=== PATIENT | male | born 1970 ===

== ENCOUNTER 2019-04-07 01:24 | Inpatient (IN) ==
[2019-04-07] MEDS ORDERED: GLUCAGON 1 MG VIAL IM PRN (03:29)
[2019-04-07] MEDS ORDERED: DEXTROSE 50% 25 GM/50 ML VIAL IV PRN (03:29)
[2019-04-07] MEDS: LABETALOL 20 MG/4 ML SYRINGE IV PRN ×2 (04:49→08:26)
[2019-04-07 05:38] LABS: Basophils # 0.1 10*3/uL (0.0-0.2); Basophils % 1.1 % (0.0-0.8); Eosinophils # 0.2 10*3/uL (0.0-0.87); Eosinophils % 2.4 % (0.00-10.9); Hematocrit 21.9 VOL% (42.0-52.0); Hemoglobin 6.9 GM/DL (14.0-18.0); Immature Granulocytes % 0.6 %; Immature Granulocytes Absolute 0.05 #; Lymphocytes % 23.2 % (21.2-54.2); Mean Corpuscular HGB Conc 31.5 GM/DL (32-36); Mean Corpuscular Volume 97.8 FL (87-102); Mean Platelet Volume 9.7 FL (9.6-12.0); Monocytes % 8.5 % (1.7-12.7); Neutrophils % 64.2 % (38.7-73.9); Platelet Count 227 T/CUMM (130-400); Red Blood Count 2.24 MC/CUMM (3.8-5.5); Red Cell Distribution Width 14.3 % (9.3-17.3); White Blood Count 8.4 T/CUMM (4-12)
[2019-04-07 06:07] LABS: Alanine Aminotransferase 61 U/L (16-61); Albumin 2.1 G/DL (3.4-5.0); Alkaline Phosphatase 63 U/L (45-117); Aspartate Amino Transferase 36 U/L (0-37); Bilirubin,Total < 0.39 MG/DL (0.2-1.0); Blood Urea Nitrogen 77 MG/DL (7-18); Calcium 7.1 MG/DL (8.5-10.1); Glucose 107 MG/DL (74-106); Osmolality,Calculated 308.8 MOS/KG (273-304)
[2019-04-07] MEDS: INSULIN REGULAR 100 UNIT/ML SUBCUT SCH ×4 (08:04→21:42)
[2019-04-07] MEDS: amLODIPine 10 MG TABLET PO SCH (09:20)
[2019-04-07] MEDS: PANTOPRAZOLE 40 MG TABLET PO SCH (09:20)
[2019-04-07] MEDS: ACETAMINOPHEN 325 MG TABLET PO PRN (11:41)
[2019-04-07] MEDS ORDERED: SODIUM CHLORIDE 0.9% 1,000 ML IV PRN (12:04)
[2019-04-07 18:18] LABS: Hematocrit 21.5 VOL% (42.0-52.0); Hemoglobin 6.8 GM/DL (14.0-18.0)
[2019-04-08] MEDS: INSULIN REGULAR 100 UNIT/ML SUBCUT SCH ×4 (07:43→20:09)
[2019-04-08 08:50] LABS: Basophils # 0.1 10*3/uL (0.0-0.2); Eosinophils # 0.2 10*3/uL (0.0-0.87); Eosinophils % 2.2 % (0.00-10.9); Hemoglobin 7.2 GM/DL (14.0-18.0); Immature Granulocytes % 0.4 %; Immature Granulocytes Absolute 0.04 #; Lymphocytes # 2.5 10*3/uL (1.4-4.0); Lymphocytes % 28.5 % (21.2-54.2); Mean Corpuscular HGB Conc 31.3 GM/DL (32-36); Mean Corpuscular Volume 97.9 FL (87-102); Mean Platelet Volume 9.2 FL (9.6-12.0); Monocytes % 9.2 % (1.7-12.7); Neutrophils % 58.7 % (38.7-73.9); Platelet Count 209 T/CUMM (130-400); Red Blood Count 2.35 MC/CUMM (3.8-5.5); Red Cell Distribution Width 14.9 % (9.3-17.3); White Blood Count 8.9 T/CUMM (4-12)
[2019-04-08 09:20] LABS: Calcium 6.8 MG/DL (8.5-10.1); Osmolality,Calculated 311.8 MOS/KG (273-304)
[2019-04-08] MEDS: PANTOPRAZOLE 40 MG TABLET PO SCH (10:18)
[2019-04-08] MEDS: amLODIPine 10 MG TABLET PO SCH (10:18)
[2019-04-08] MEDS ORDERED: LIDOCAINE 1%/EPI INJ 20 ML VIAL ONE (10:21)
[2019-04-08] MEDS ORDERED: BUPIVACAINE 0.25% /EPI 10 ML VIAL ONE (10:21)
[2019-04-08] MEDS ORDERED: HEPARIN 5,000 UNIT/1 ML VIAL ONE (10:21)
[2019-04-08 10:40] LABS: Hepatitis B Core IgM Quant 0.08 Index; Hepatitis B Surface Ag Quant < 0.10 Index; Hepatitis B Surface Ag Result Negative (Negative); Hepatitis C Virus Ab Quant 0.11 Index; Hepatitis C Virus Ab Result Negative (Negative)
[2019-04-08] MEDS ORDERED: ceFAZolin 1,000 MG VIAL ONE (11:11)
[2019-04-08] MEDS ORDERED: PROPOFOL 200 MG/20 ML VIAL IV ONE (11:42)
[2019-04-08] MEDS ORDERED: KETAMINE 500 MG/10 ML VIAL ONE (11:43)
[2019-04-08] MEDS ORDERED: MIDAZOLAM 2 MG/2 ML VIAL ONE (11:43)
[2019-04-08] MEDS ORDERED: fentaNYL 100 MCG/2 ML VIAL ONE (11:43)
[2019-04-08] MEDS ORDERED: SODIUM CHLORIDE 0.9% 250 ML IV ONE (11:44)
[2019-04-08] MEDS ORDERED: MAGNESIUM SULF RIDER 4 GM in PREMIX 1 EACH IV PRN (13:36)
[2019-04-08] MEDS ORDERED: MAGNESIUM SULF RIDER 2 GM in PREMIX 1 EACH IV PRN (13:36)
[2019-04-08] MEDS: ACETAMINOPHEN 325 MG TABLET PO PRN (23:45)
[2019-04-08] MEDS: LABETALOL 20 MG/4 ML SYRINGE IV PRN (23:46)
[2019-04-08] MEDS: ONDANSETRON 4 MG/2 ML VIAL IV PRN (23:46)
[2019-04-09] MEDS ORDERED: HEPARIN 10,000 UNIT/10 ML VIAL IV PRN (08:34)
[2019-04-09] MEDS: INSULIN REGULAR 100 UNIT/ML SUBCUT SCH ×4 (09:14→20:31)
[2019-04-09 09:34] LABS: Basophils # 0.1 10*3/uL (0.0-0.2); Basophils % 0.6 % (0.0-0.8); Eosinophils # 0.2 10*3/uL (0.0-0.87); Eosinophils % 1.9 % (0.00-10.9); Hematocrit 22.3 VOL% (42.0-52.0); Hemoglobin 7.3 GM/DL (14.0-18.0); Immature Granulocytes % 0.5 %; Immature Granulocytes Absolute 0.04 #; Lymphocytes # 1.8 10*3/uL (1.4-4.0); Lymphocytes % 21.8 % (21.2-54.2); Mean Corpuscular HGB Conc 32.7 GM/DL (32-36); Mean Corpuscular Volume 94.9 FL (87-102); Mean Platelet Volume 9.2 FL (9.6-12.0); Monocytes % 8.5 % (1.7-12.7); Neutrophils % 66.7 % (38.7-73.9); Platelet Count 196 T/CUMM (130-400); Red Blood Count 2.35 MC/CUMM (3.8-5.5); Red Cell Distribution Width 14.2 % (9.3-17.3); White Blood Count 8.2 T/CUMM (4-12)
[2019-04-09] MEDS: LABETALOL 20 MG/4 ML SYRINGE IV PRN ×3 (10:19→20:55)
[2019-04-09] MEDS: amLODIPine 10 MG TABLET PO SCH (10:19)
[2019-04-09 10:22] LABS: Calcium 7.2 MG/DL (8.5-10.1); Osmolality,Calculated 302.4 MOS/KG (273-304)
[2019-04-09] MEDS: PANTOPRAZOLE 40 MG TABLET PO SCH (13:43)
[2019-04-09] MEDS: ONDANSETRON 4 MG/2 ML VIAL IV PRN (20:55)
[2019-04-10 05:39] LABS: Basophils # 0.1 10*3/uL (0.0-0.2); Basophils % 0.7 % (0.0-0.8); Eosinophils # 0.2 10*3/uL (0.0-0.87); Hemoglobin 6.5 GM/DL (14.0-18.0); Immature Granulocytes % 0.3 %; Immature Granulocytes Absolute 0.03 #; Lymphocytes # 2.2 10*3/uL (1.4-4.0); Lymphocytes % 25.1 % (21.2-54.2); Mean Corpuscular HGB Conc 32.5 GM/DL (32-36); Mean Corpuscular Volume 94.8 FL (87-102); Mean Platelet Volume 9.6 FL (9.6-12.0); Monocytes % 10.8 % (1.7-12.7); Neutrophils % 61.1 % (38.7-73.9); Platelet Count 176 T/CUMM (130-400); Red Blood Count 2.11 MC/CUMM (3.8-5.5); White Blood Count 8.8 T/CUMM (4-12)
[2019-04-10 06:09] LABS: Calcium 6.7 MG/DL (8.5-10.1); Osmolality,Calculated 294.1 MOS/KG (273-304)
[2019-04-10] MEDS: INSULIN REGULAR 100 UNIT/ML SUBCUT SCH ×4 (08:04→20:00)
[2019-04-10] MEDS: amLODIPine 10 MG TABLET PO SCH (08:48)
[2019-04-10] MEDS: PANTOPRAZOLE 40 MG TABLET PO SCH (08:49)
[2019-04-10] MEDS: ACETAMINOPHEN 325 MG TABLET PO PRN (08:49)
[2019-04-10] MEDS: ONDANSETRON 4 MG/2 ML VIAL IV PRN (14:58)
[2019-04-10] MEDS ORDERED: SODIUM CHLORIDE 0.9% 1,000 ML IV PRN (16:53)
[2019-04-11 05:00] LABS: Basophils # 0.1 10*3/uL (0.0-0.2); Basophils % 0.7 % (0.0-0.8); Eosinophils # 0.2 10*3/uL (0.0-0.87); Eosinophils % 2.5 % (0.00-10.9); Hematocrit 20.4 VOL% (42.0-52.0); Hemoglobin 6.6 GM/DL (14.0-18.0); Immature Granulocytes % 0.3 %; Immature Granulocytes Absolute 0.03 #; Lymphocytes # 2.2 10*3/uL (1.4-4.0); Lymphocytes % 25.3 % (21.2-54.2); Mean Corpuscular HGB Conc 32.4 GM/DL (32-36); Mean Corpuscular Volume 95.8 FL (87-102); Mean Platelet Volume 9.1 FL (9.6-12.0); Monocytes % 10.1 % (1.7-12.7); Neutrophils % 61.1 % (38.7-73.9); Platelet Count 176 T/CUMM (130-400); Red Blood Count 2.13 MC/CUMM (3.8-5.5); Red Cell Distribution Width 13.8 % (9.3-17.3); White Blood Count 8.7 T/CUMM (4-12)
[2019-04-11 05:19] LABS: Calcium 6.6 MG/DL (8.5-10.1); Osmolality,Calculated 293.3 MOS/KG (273-304)
[2019-04-11] MEDS: INSULIN REGULAR 100 UNIT/ML SUBCUT SCH ×4 (07:42→19:59)
[2019-04-11] MEDS: amLODIPine 10 MG TABLET PO SCH ×2 (08:09→11:58)
[2019-04-11] MEDS: PANTOPRAZOLE 40 MG TABLET PO SCH ×2 (08:10→11:58)
[2019-04-11] MEDS ORDERED: HEPARIN 5,000 UNIT/1 ML VIAL ONE (11:51)
[2019-04-11] MEDS ORDERED: BUPIVACAINE 0.25% /EPI 10 ML VIAL ONE (11:51)
[2019-04-11] MEDS ORDERED: THROMBIN TOPICAL (RECOMBINANT) 5,000 UNIT VIAL TOP ONE (11:52)
[2019-04-11] MEDS ORDERED: LIDOCAINE 1%/EPI INJ 20 ML VIAL ONE (11:52)
[2019-04-11] MEDS ORDERED: ceFAZolin 1,000 MG VIAL ONE (13:09)
[2019-04-11] MEDS: GABAPENTIN 100 MG CAPSULE PO SCH ×2 (14:00→20:22)
[2019-04-11] MEDS ORDERED: PROPOFOL 200 MG/20 ML VIAL IV ONE (14:30)
[2019-04-11] MEDS ORDERED: METOPROLOL TARTRATE 5 MG/5 ML VIAL IV ONE (14:31)
[2019-04-11] MEDS ORDERED: MIDAZOLAM 2 MG/2 ML VIAL ONE (14:31)
[2019-04-11] MEDS ORDERED: fentaNYL 100 MCG/2 ML VIAL ONE (14:31)
[2019-04-11] MEDS: CARVEDILOL 25 MG TABLET PO SCH (20:22)
[2019-04-11] MEDS: ATORVASTATIN 40 MG TABLET PO SCH (20:22)
[2019-04-11] MEDS: ACETAMINOPHEN 325 MG TABLET PO PRN (20:23)
[2019-04-12 07:12] LABS: Basophils # 0.1 10*3/uL (0.0-0.2); Basophils % 1.1 % (0.0-0.8); Eosinophils # 0.2 10*3/uL (0.0-0.87); Eosinophils % 2.8 % (0.00-10.9); Hematocrit 27.5 VOL% (42.0-52.0); Hemoglobin 8.9 GM/DL (14.0-18.0); Immature Granulocytes % 0.4 %; Immature Granulocytes Absolute 0.03 #; Lymphocytes # 1.8 10*3/uL (1.4-4.0); Lymphocytes % 24.2 % (21.2-54.2); Mean Corpuscular HGB Conc 32.4 GM/DL (32-36); Mean Corpuscular Volume 93.9 FL (87-102); Mean Platelet Volume 8.8 FL (9.6-12.0); Monocytes % 8.8 % (1.7-12.7); Neutrophils % 62.7 % (38.7-73.9); Platelet Count 165 T/CUMM (130-400); Red Blood Count 2.93 MC/CUMM (3.8-5.5); Red Cell Distribution Width 14.2 % (9.3-17.3); White Blood Count 7.6 T/CUMM (4-12)
[2019-04-12] MEDS ORDERED: HYDROCORTISONE 1% CREAM 28 GM TUBE TOP PRN (08:50)
[2019-04-12] MEDS ORDERED: SKIN HEALING OINT (AQUAPHOR) 50 GM TUBE TOP PRN (08:50)
[2019-04-12] MEDS ORDERED: NIFEDIPINE 30 MG PO SCH (09:00)
[2019-04-12] MEDS: PANTOPRAZOLE 40 MG TABLET PO SCH (09:06)
[2019-04-12] MEDS: GABAPENTIN 100 MG CAPSULE PO SCH ×3 (09:06→21:12)
[2019-04-12] MEDS: CETIRIZINE 10 MG TABLET PO SCH (09:06)
[2019-04-12] MEDS: CARVEDILOL 25 MG TABLET PO SCH ×2 (09:06→21:12)
[2019-04-12] MEDS: INSULIN REGULAR 100 UNIT/ML SUBCUT SCH ×4 (10:12→21:12)
[2019-04-12] MEDS: LOSARTAN 50 MG TABLET PO SCH (10:12)
[2019-04-12] MEDS ORDERED: EPOETIN ALFA 2,000 UNIT/1 ML VIAL IV PRN (15:54)
[2019-04-12] MEDS: ATORVASTATIN 40 MG TABLET PO SCH (21:12)
[2019-04-13 05:45] LABS: % Iron Saturation 23.2 % (18-50)
[2019-04-13] MEDS: INSULIN REGULAR 100 UNIT/ML SUBCUT SCH ×3 (08:46→16:12)
[2019-04-13] MEDS: GABAPENTIN 100 MG CAPSULE PO SCH ×2 (12:58→16:12)
[2019-04-13] MEDS: CARVEDILOL 25 MG TABLET PO SCH (12:58)
[2019-04-13] MEDS: CETIRIZINE 10 MG TABLET PO SCH (12:58)
[2019-04-13] MEDS: PANTOPRAZOLE 40 MG TABLET PO SCH (12:58)
[2019-04-13] MEDS: LOSARTAN 50 MG TABLET PO SCH (12:59)
[2019-04-13 16:27] VITALS: BP 129/73
== END 2019-04-13 18:15 | disposition home or self-care (01) | DRG 674 ==
LOC: N.5E 01:34 → SUATTDRO 03:04
PROVIDERS: ADMIT Internal Medicine; ATTEND Internal Medicine

== ENCOUNTER 2020-11-19 10:39 | Observation (INO) ==
[2020-11-19 12:03] LABS: Basophils # 0.1 10*3/uL (0.0-0.2); Basophils % 1.2 % (0.0-0.8); Eosinophils # 0.1 10*3/uL (0.0-0.87); Eosinophils % 1.4 % (0.00-10.9); Hematocrit 32.6 VOL% (42.0-52.0); Hemoglobin 10.8 GM/DL (14.0-18.0); Immature Granulocytes % 0.6 %; Immature Granulocytes Absolute 0.06 #; Lymphocytes # 2.5 10*3/uL (1.4-4.0); Lymphocytes % 26.6 % (21.2-54.2); Mean Corpuscular HGB Conc 33.1 GM/DL (32-36); Mean Platelet Volume 8.8 FL (9.6-12.0); Monocytes % 7.3 % (1.7-12.7); Neutrophils % 62.9 % (38.7-73.9); Platelet Count 292 T/CUMM (130-400); Red Blood Count 3.43 MC/CUMM (3.8-5.5); Red Cell Distribution Width 13.2 % (9.3-17.3); White Blood Count 9.3 T/CUMM (4-12)
[2020-11-19] MEDS ORDERED: propofoL 200 MG/20 ML VIAL IV ONE (12:07)
[2020-11-19] MEDS ORDERED: LIDOCAINE 2% 5 ML VIAL ONE (12:07)
[2020-11-19] MEDS ORDERED: MIDAZOLAM 2 MG/2 ML VIAL ONE (12:07)
[2020-11-19] MEDS ORDERED: DEXMEDETOMIDINE 200 MCG/2 ML VIAL ONE (12:07)
[2020-11-19] MEDS ORDERED: BUPIVACAINE MPF 0.25% 30 ML VIAL ONE (12:08)
[2020-11-19] MEDS ORDERED: TISSUE ADHESIVE 1 EACH APPLICATOR TOP ONE (12:08)
[2020-11-19] MEDS ORDERED: LIDOCAINE 1%/EPI INJ 20 ML VIAL ONE (12:08)
[2020-11-19] MEDS ORDERED: HEPARIN 5,000 UNIT/1 ML VIAL ONE (12:08)
[2020-11-19 12:26] LABS: Albumin 3.8 G/DL (3.4-5.0); Bilirubin,Total 0.4 MG/DL (0.2-1.0); Calcium 7.2 MG/DL (8.5-10.1); Osmolality,Calculated 298.5 MOS/KG (273-304); Total Protein 8.3 G/DL (6.4-8.3)
[2020-11-19 12:30] LABS: Potassium 6.9 MMOL/L (3.5-5.1)
[2020-11-19] MEDS ORDERED: ONDANSETRON 4 MG/2 ML VIAL IV PRN (13:15)
[2020-11-19] MEDS ORDERED: ACETAMINOPHEN 325 MG TABLET PO PRN (13:15)
[2020-11-19] MEDS ORDERED: DEXTROSE 50% 25 GM/50 ML VIAL IV PRN ×2 (13:15)
[2020-11-19] MEDS ORDERED: GLUCAGON 1 MG VIAL IM PRN ×2 (13:15)
[2020-11-19] MEDS ORDERED: GLYCOPYRROLATE 0.4 MG/2 ML VIAL IV STA (13:45)
[2020-11-19] MEDS ORDERED: GLYCOPYRROLATE 0.4 MG/2 ML VIAL ONE (13:47)
[2020-11-19] MEDS ORDERED: INSULIN REGULAR 100 UNIT/ML IV STA (13:50)
[2020-11-19] MEDS ORDERED: DEXTROSE 50% 25 GM/50 ML VIAL IV STA (13:50)
[2020-11-19] MEDS ORDERED: ATROPINE 1 MG/10 ML SYRINGE IV STA (13:50)
[2020-11-19] MEDS ORDERED: EPINEPHrine 1 MG/10 ML SYRINGE IV STA (13:53)
[2020-11-19] MEDS ORDERED: INSULIN REGULAR 100 UNIT/ML ONE (13:53)
[2020-11-19] MEDS ORDERED: ALBUTEROL 2.5 MG/3 ML NEB RESP TX ONE (13:54)
[2020-11-19] MEDS ORDERED: ALBUTEROL 2.5 MG/3 ML NEB RESP TX STA (13:55)
[2020-11-19 14:11] LABS: Basophils # 0.1 10*3/uL (0.0-0.2); Basophils % 0.7 % (0.0-0.8); Eosinophils # 0.1 10*3/uL (0.0-0.87); Eosinophils % 0.7 % (0.00-10.9); Immature Granulocytes % 0.7 %; Immature Granulocytes Absolute 0.08 #; Lymphocytes # 4.4 10*3/uL (1.4-4.0); Mean Corpuscular HGB Conc 33.3 GM/DL (32-36); Mean Corpuscular Volume 95.9 FL (87-102); Mean Platelet Volume 8.8 FL (9.6-12.0); Monocytes % 1.7 % (1.7-12.7); Neutrophils % 60.2 % (38.7-73.9); Platelet Count 289 T/CUMM (130-400); Red Blood Count 3.44 MC/CUMM (3.8-5.5); Red Cell Distribution Width 13.2 % (9.3-17.3); White Blood Count 12.2 T/CUMM (4-12)
[2020-11-19 14:30] LABS: Calcium 7.4 MG/DL (8.5-10.1); Osmolality,Calculated 308.7 MOS/KG (273-304)
[2020-11-19 14:34] LABS: Potassium 7.1 MMOL/L (3.5-5.1)
[2020-11-19] MEDS ORDERED: CALCIUM GLUCONATE 1,000 MG/10 ML VIAL IV ONE (14:50)
[2020-11-19] MEDS ORDERED: CALCIUM GLUCONATE 2,000 MG in SODIUM CHLORIDE 0.9% 100 ML IV ONE (15:00)
[2020-11-19] MEDS ORDERED: INFLUENZA VIRUS VACCINE 0.5 ML SYRINGE IM ONE (16:14)
[2020-11-19] MEDS: INSULIN LISPRO 100 UNIT/ML SUBCUT SCH ×2 (17:44→20:14)
[2020-11-19 21:12] LABS: Calcium 7.7 MG/DL (8.5-10.1); Osmolality,Calculated 285.7 MOS/KG (273-304); Potassium 5.4 MMOL/L (3.5-5.1)
[2020-11-20] MEDS ORDERED: CETIRIZINE 10 MG TABLET PO PRN (01:17)
[2020-11-20 04:49] LABS: Basophils # 0.1 10*3/uL (0.0-0.2); Basophils % 0.9 % (0.0-0.8); Eosinophils # 0.1 10*3/uL (0.0-0.87); Hematocrit 32.4 VOL% (42.0-52.0); Hemoglobin 11.1 GM/DL (14.0-18.0); Immature Granulocytes % 0.3 %; Immature Granulocytes Absolute 0.03 #; Lymphocytes # 2.5 10*3/uL (1.4-4.0); Mean Corpuscular HGB Conc 34.3 GM/DL (32-36); Mean Corpuscular Volume 93.9 FL (87-102); Mean Platelet Volume 9.3 FL (9.6-12.0); Neutrophils % 64.8 % (38.7-73.9); Platelet Count 291 T/CUMM (130-400); Red Blood Count 3.45 MC/CUMM (3.8-5.5); Red Cell Distribution Width 13.3 % (9.3-17.3); White Blood Count 9.6 T/CUMM (4-12)
[2020-11-20 04:52] LABS: Calcium 7.2 MG/DL (8.5-10.1); Osmolality,Calculated 291.2 MOS/KG (273-304)
[2020-11-20] MEDS: INSULIN LISPRO 100 UNIT/ML SUBCUT SCH ×4 (07:30→23:38)
[2020-11-20] MEDS ORDERED: CETIRIZINE 10 MG TABLET PO SCH (09:00)
[2020-11-20] MEDS ORDERED: SKIN HEALING OINT (AQUAPHOR) 50 GM TUBE TOP PRN (14:00)
[2020-11-20] MEDS ORDERED: HYDROCORTISONE 1% CREAM 28 GM TUBE TOP PRN (14:00)
[2020-11-20] MEDS: GABAPENTIN 100 MG CAPSULE PO SCH ×2 (16:39→23:38)
[2020-11-20] MEDS: ATORVASTATIN 40 MG TABLET PO SCH (23:37)
[2020-11-21 06:08] LABS: Calcium 6.9 MG/DL (8.5-10.1); Osmolality,Calculated 298.2 MOS/KG (273-304); Potassium 5.9 MMOL/L (3.5-5.1)
[2020-11-21] MEDS: INSULIN LISPRO 100 UNIT/ML SUBCUT SCH ×4 (08:31→21:17)
[2020-11-21] MEDS: GABAPENTIN 100 MG CAPSULE PO SCH ×3 (08:54→20:34)
[2020-11-21] MEDS ORDERED: HEPARIN 10,000 UNIT/10 ML VIAL IV PRN (10:50)
[2020-11-21] MEDS ORDERED: SODIUM POLYSTYRENE SULFATE 15 GM/60 ML BOTTLE PO ONE (12:30)
[2020-11-21] MEDS: ATORVASTATIN 40 MG TABLET PO SCH (20:34)
[2020-11-22 08:19] VITALS: BP 115/77
[2020-11-22] MEDS: GABAPENTIN 100 MG CAPSULE PO SCH (08:20)
[2020-11-22] MEDS ORDERED: SODIUM POLYSTYRENE SULFATE 15 GM/60 ML BOTTLE PO ONE (09:00)
== END 2020-11-22 12:35 | disposition home or self-care (01) ==
LOC: N.ED 10:39 → N.EDINP 10:39 → SUATTDRO 13:15 → N.CC 15:07 → N.5E 11-20 14:01
PROVIDERS: ADMIT Internal Medicine; ATTEND Internal Medicine

== ENCOUNTER 2021-08-28 13:35 | Inpatient (IN) ==
[2021-08-28] MEDS ORDERED: ONDANSETRON 4 MG/2 ML VIAL IV STA (14:03)
[2021-08-28] MEDS ORDERED: MORPHINE 2 MG/1 ML SYRINGE IV STA (14:03)
[2021-08-28] MEDS ORDERED: ALUM/MAG/SIMETH/LIDO VISC 1:1 30 ML BOTTLE PO STA (14:03)
[2021-08-28] MEDS ORDERED: NITROGLYCERIN 2% OINT 1 INCH/GM PACK TOP STA (14:03)
[2021-08-28] MEDS ORDERED: ASPIRIN 325 MG TABLET PO STA (14:03)
[2021-08-28] MEDS ORDERED: METOPROLOL TARTRATE 5 MG/5 ML VIAL IV STA (14:13)
[2021-08-28 14:18] LABS: Basophils % 0.4 % (0.0-0.8); Eosinophils % 0.1 % (0.00-10.9); Hematocrit 30.7 VOL% (42.0-52.0); Hemoglobin 9.9 GM/DL (14.0-18.0); Immature Granulocytes % 0.7 %; Immature Granulocytes Absolute 0.07 #; Lymphocytes # 1.2 10*3/uL (1.4-4.0); Lymphocytes % 11.6 % (21.2-54.2); Mean Corpuscular HGB Conc 32.2 GM/DL (32-36); Mean Corpuscular Volume 96.5 FL (87-102); Monocytes % 8.6 % (1.7-12.7); Neutrophils % 78.6 % (38.7-73.9); Platelet Count 156 T/CUMM (130-400); Red Blood Count 3.18 MC/CUMM (3.8-5.5); Red Cell Distribution Width 12.4 % (9.3-17.3); White Blood Count 10.6 T/CUMM (4-12)
[2021-08-28 14:31] LABS: PT Patient Result 11.6 SECS (10.5-12.0); Partial Thromboplastin Time 32.5 SECS (23.8-32.1)
[2021-08-28] MEDS ORDERED: FUROSEMIDE 40 MG/4 ML VIAL IV STA (14:47)
[2021-08-28] MEDS ORDERED: hydrALAZINE 20 MG/1 ML VIAL IV STA (14:51)
[2021-08-28 15:01] LABS: Albumin 3.8 G/DL (3.4-5.0); Bilirubin,Total 0.6 MG/DL (0.20-1.00); Osmolality,Calculated 317.4 MOS/KG (273-304); Potassium 5.4 MMOL/L (3.5-5.1); Total Protein 7.8 G/DL (6.4-8.2)
[2021-08-28] MEDS ORDERED: MAGNESIUM SULF RIDER 2 GM/50 ML PREMIX IV PRN (16:26)
[2021-08-28] MEDS ORDERED: POTASSIUM CHLORIDE 20 MEQ TABLET PO PRN (16:26)
[2021-08-28] MEDS ORDERED: hydrALAZINE 20 MG/1 ML VIAL IV PRN (16:26)
[2021-08-28] MEDS ORDERED: MORPHINE 2 MG/1 ML SYRINGE IV PRN (16:26)
[2021-08-28] MEDS ORDERED: MAGNESIUM SULF RIDER 4 GM/100 ML PREMIX IV PRN (16:26)
[2021-08-28] MEDS ORDERED: NITROGLYCERIN SL 0.4 MG TABLET SL PRN (16:26)
[2021-08-28] MEDS ORDERED: GLUCAGON 1 MG VIAL IM PRN (16:26)
[2021-08-28] MEDS ORDERED: ALUMINUM/MAGNES/SIMETH MAX STR 30 ML UDCUP PO PRN (16:26)
[2021-08-28] MEDS ORDERED: DEXTROSE 50% 25 GM/50 ML SYRINGE IV PRN (16:26)
[2021-08-28] MEDS ORDERED: ALBUTEROL 2.5 MG/3 ML NEB RESP TX PRN (16:26)
[2021-08-28] MEDS ORDERED: ONDANSETRON 4 MG/2 ML VIAL IV PRN (16:26)
[2021-08-28] MEDS ORDERED: SODIUM POLYSTYRENE SULFATE 15 GM/60 ML BOTTLE PO STA (16:52)
[2021-08-28] MEDS: INSULIN LISPRO 100 UNIT/ML SUBCUT SCH ×2 (17:55→20:43)
[2021-08-28] MEDS: carvediloL 25 MG TABLET PO SCH (20:19)
[2021-08-28] MEDS: ATORVASTATIN 40 MG TABLET PO SCH (20:19)
[2021-08-28] MEDS ORDERED: ENOXAPARIN 30 MG/0.3 ML SYRINGE SUBCUT SCH (21:00)
[2021-08-29 06:17] LABS: Basophils % 0.4 % (0.0-0.8); Eosinophils # 0.1 10*3/uL (0.0-0.87); Eosinophils % 1.1 % (0.00-10.9); Hematocrit 26.9 VOL% (42.0-52.0); Hemoglobin 8.6 GM/DL (14.0-18.0); Immature Granulocytes % 0.5 %; Immature Granulocytes Absolute 0.04 #; Lymphocytes # 1.5 10*3/uL (1.4-4.0); Lymphocytes % 17.9 % (21.2-54.2); Mean Corpuscular Volume 96.4 FL (87-102); Mean Platelet Volume 10.2 FL (9.6-12.0); Monocytes % 7.9 % (1.7-12.7); Neutrophils % 72.2 % (38.7-73.9); Platelet Count 127 T/CUMM (130-400); Red Blood Count 2.79 MC/CUMM (3.8-5.5); Red Cell Distribution Width 12.5 % (9.3-17.3); White Blood Count 8.4 T/CUMM (4-12)
[2021-08-29 06:29] LABS: PT Patient Result 11.6 SECS (10.5-12.0); Partial Thromboplastin Time 33.8 SECS (23.8-32.1)
[2021-08-29 06:50] LABS: Albumin 3.4 G/DL (3.4-5.0); Bilirubin,Total 1.7 MG/DL (0.20-1.00); Osmolality,Calculated 306.7 MOS/KG (273-304); Risk Ratio 2.55; Thyroid Stimulating Hormone 1.28 uIU/ml (0.358-3.74); VLDL Cholesterol 18.2 MG/DL
[2021-08-29 06:59] LABS: Potassium 7.1 MMOL/L (3.5-5.1)
[2021-08-29 07:01] LABS: Calcium 8.4 MG/DL (8.5-10.1)
[2021-08-29] MEDS: INSULIN LISPRO 100 UNIT/ML SUBCUT SCH ×4 (07:37→21:06)
[2021-08-29] MEDS ORDERED: SODIUM POLYSTYRENE SULFATE 15 GM/60 ML BOTTLE PO ONE (08:18)
[2021-08-29] MEDS ORDERED: CALCIUM GLUCONATE 1,000 MG in SODIUM CHLORIDE 0.9% 100 ML IV ONE (08:18)
[2021-08-29] MEDS ORDERED: KETOROLAC 30 MG/1 ML VIAL IV ONE (08:20)
[2021-08-29] MEDS ORDERED: INSULIN REGULAR 100 UNIT/ML SUBCUT ONE (08:20)
[2021-08-29] MEDS ORDERED: DEXTROSE 50% 25 GM/50 ML SYRINGE IV ONE (08:30)
[2021-08-29] MEDS ORDERED: LOSARTAN 50 MG TABLET PO SCH ×2 (09:00)
[2021-08-29] MEDS: carvediloL 25 MG TABLET PO SCH ×2 (09:42→21:04)
[2021-08-29] MEDS: MULTIVITAMIN (CENTRUM) TABLET PO SCH (09:42)
[2021-08-29] MEDS: GABAPENTIN 100 MG CAPSULE PO SCH ×3 (09:43→21:05)
[2021-08-29] MEDS: PANTOPRAZOLE 40 MG TABLET PO SCH (09:43)
[2021-08-29] MEDS: SODIUM BICARB INJ 50 MEQ in STERILE WATER INJ 1,000 ML IV SCH (09:50)
[2021-08-29] MEDS: SODIUM BICARB INJ 50 MEQ in SODIUM CHLORIDE 0.45% 1,000 ML IV SCH (16:00)
[2021-08-29] MEDS: hydrALAZINE 25 MG TABLET PO SCH ×2 (16:57→21:04)
[2021-08-29] MEDS: ATORVASTATIN 40 MG TABLET PO SCH (21:04)
[2021-08-30] MEDS: SODIUM BICARB INJ 50 MEQ in SODIUM CHLORIDE 0.45% 1,000 ML IV SCH ×3 (01:12→21:04)
[2021-08-30 04:24] LABS: Basophils # 0.1 10*3/uL (0.0-0.2); Basophils % 0.9 % (0.0-0.8); Eosinophils # 0.2 10*3/uL (0.0-0.87); Eosinophils % 2.8 % (0.00-10.9); Hematocrit 25.8 VOL% (42.0-52.0); Hemoglobin 8.7 GM/DL (14.0-18.0); Immature Granulocytes % 0.3 %; Immature Granulocytes Absolute 0.02 #; Lymphocytes # 1.6 10*3/uL (1.4-4.0); Lymphocytes % 23.3 % (21.2-54.2); Mean Corpuscular HGB Conc 33.7 GM/DL (32-36); Mean Corpuscular Volume 95.2 FL (87-102); Mean Platelet Volume 10.1 FL (9.6-12.0); Monocytes % 8.8 % (1.7-12.7); Neutrophils % 63.9 % (38.7-73.9); Platelet Count 120 T/CUMM (130-400); Red Blood Count 2.71 MC/CUMM (3.8-5.5); Red Cell Distribution Width 12.4 % (9.3-17.3); White Blood Count 6.8 T/CUMM (4-12)
[2021-08-30 04:50] LABS: Calcium 7.7 MG/DL (8.5-10.1); Osmolality,Calculated 305.2 MOS/KG (273-304); Potassium 4.9 MMOL/L (3.5-5.1)
[2021-08-30] MEDS: SODIUM BICARB INJ 50 MEQ in STERILE WATER INJ 1,000 ML IV SCH ×2 (07:32→16:12)
[2021-08-30] MEDS: INSULIN LISPRO 100 UNIT/ML SUBCUT SCH ×4 (07:33→21:05)
[2021-08-30] MEDS: GABAPENTIN 100 MG CAPSULE PO SCH ×3 (08:18→21:05)
[2021-08-30] MEDS: MULTIVITAMIN (CENTRUM) TABLET PO SCH (08:18)
[2021-08-30] MEDS: hydrALAZINE 25 MG TABLET PO SCH ×3 (08:19→21:05)
[2021-08-30] MEDS: PANTOPRAZOLE 40 MG TABLET PO SCH (08:19)
[2021-08-30] MEDS: carvediloL 25 MG TABLET PO SCH ×2 (08:19→21:05)
[2021-08-30] MEDS: HEPARIN 5,000 UNIT/1 ML VIAL SUBCUT SCH ×2 (12:48→23:18)
[2021-08-30] MEDS: MELATONIN 3 MG TABLET PO PRN (21:04)
[2021-08-30] MEDS: ATORVASTATIN 40 MG TABLET PO SCH (21:05)
[2021-08-31 05:38] LABS: Basophils % 0.6 % (0.0-0.8); Eosinophils # 0.2 10*3/uL (0.0-0.87); Hematocrit 22.1 VOL% (42.0-52.0); Hemoglobin 7.3 GM/DL (14.0-18.0); Immature Granulocytes % 0.6 %; Immature Granulocytes Absolute 0.04 #; Lymphocytes # 1.5 10*3/uL (1.4-4.0); Lymphocytes % 21.8 % (21.2-54.2); Mean Corpuscular Volume 95.3 FL (87-102); Mean Platelet Volume 10.3 FL (9.6-12.0); Monocytes % 8.3 % (1.7-12.7); Neutrophils % 65.7 % (38.7-73.9); Platelet Count 124 T/CUMM (130-400); Red Blood Count 2.32 MC/CUMM (3.8-5.5); Red Cell Distribution Width 12.5 % (9.3-17.3); White Blood Count 6.8 T/CUMM (4-12)
[2021-08-31 05:39] LABS: Basophils # 0.1 10*3/uL (0.0-0.2); Basophils % 0.7 % (0.0-0.8); Eosinophils # 0.2 10*3/uL (0.0-0.87); Eosinophils % 2.7 % (0.00-10.9); Hematocrit 22.2 VOL% (42.0-52.0); Hemoglobin 7.2 GM/DL (14.0-18.0); Lymphocytes # 1.5 10*3/uL (1.4-4.0); Lymphocytes % 21.6 % (21.2-54.2); Mean Corpuscular HGB Conc 32.4 GM/DL (32-36); Mean Corpuscular Volume 96.1 FL (87-102); Mean Platelet Volume 10.4 FL (9.6-12.0); Neutrophils % 65.3 % (38.7-73.9); Platelet Count 123 T/CUMM (130-400); Red Blood Count 2.31 MC/CUMM (3.8-5.5); Red Cell Distribution Width 12.4 % (9.3-17.3); White Blood Count 6.9 T/CUMM (4-12)
[2021-08-31 06:05] LABS: Albumin 2.6 G/DL (3.4-5.0); Bilirubin,Total 1.4 MG/DL (0.20-1.00); Calcium 6.2 MG/DL (8.5-10.1); Calcium 6.3 MG/DL (8.5-10.1); Osmolality,Calculated 299.1 MOS/KG (273-304); Osmolality,Calculated 302.8 MOS/KG (273-304); Potassium 3.6 MMOL/L (3.5-5.1); Total Protein 5.8 G/DL (6.4-8.2)
[2021-08-31] MEDS: SODIUM BICARB INJ 50 MEQ in STERILE WATER INJ 1,000 ML IV SCH ×2 (07:10→12:52)
[2021-08-31] MEDS: SODIUM BICARB INJ 50 MEQ in SODIUM CHLORIDE 0.45% 1,000 ML IV SCH ×2 (07:11→17:31)
[2021-08-31] MEDS: INSULIN LISPRO 100 UNIT/ML SUBCUT SCH ×4 (07:54→21:22)
[2021-08-31] MEDS: hydrALAZINE 25 MG TABLET PO SCH ×3 (08:15→21:20)
[2021-08-31] MEDS: PANTOPRAZOLE 40 MG TABLET PO SCH (08:15)
[2021-08-31] MEDS: GABAPENTIN 100 MG CAPSULE PO SCH ×3 (08:15→21:21)
[2021-08-31] MEDS: carvediloL 25 MG TABLET PO SCH ×2 (08:15→21:21)
[2021-08-31] MEDS: MULTIVITAMIN (CENTRUM) TABLET PO SCH (08:15)
[2021-08-31] MEDS ORDERED: CALCIUM GLUCONATE 2,000 MG in SODIUM CHLORIDE 0.9% 100 ML IV ONE ×2 (09:39→12:00)
[2021-08-31] MEDS: HEPARIN 5,000 UNIT/1 ML VIAL SUBCUT SCH ×2 (11:47→23:37)
[2021-08-31] MEDS: ATORVASTATIN 40 MG TABLET PO SCH (21:21)
[2021-08-31] MEDS: MELATONIN 3 MG TABLET PO PRN (21:22)
[2021-09-01] MEDS: SODIUM BICARB INJ 50 MEQ in STERILE WATER INJ 1,000 ML IV SCH (00:34)
[2021-09-01 05:15] LABS: Basophils % 0.6 % (0.0-0.8); Eosinophils # 0.1 10*3/uL (0.0-0.87); Eosinophils % 1.8 % (0.00-10.9); Hematocrit 23.1 VOL% (42.0-52.0); Hemoglobin 7.9 GM/DL (14.0-18.0); Immature Granulocytes % 0.3 %; Immature Granulocytes Absolute 0.02 #; Lymphocytes # 1.7 10*3/uL (1.4-4.0); Lymphocytes % 23.4 % (21.2-54.2); Mean Corpuscular HGB Conc 34.2 GM/DL (32-36); Mean Corpuscular Volume 92.8 FL (87-102); Mean Platelet Volume 10.4 FL (9.6-12.0); Monocytes % 9.9 % (1.7-12.7); Platelet Count 151 T/CUMM (130-400); Red Blood Count 2.49 MC/CUMM (3.8-5.5); Red Cell Distribution Width 12.2 % (9.3-17.3); White Blood Count 7.1 T/CUMM (4-12)
[2021-09-01 05:50] LABS: Calcium 7.5 MG/DL (8.5-10.1); Osmolality,Calculated 296.2 MOS/KG (273-304); Potassium 3.7 MMOL/L (3.5-5.1)
[2021-09-01] MEDS: INSULIN LISPRO 100 UNIT/ML SUBCUT SCH ×4 (08:49→21:21)
[2021-09-01] MEDS: MULTIVITAMIN (CENTRUM) TABLET PO SCH (09:57)
[2021-09-01] MEDS: hydrALAZINE 25 MG TABLET PO SCH ×3 (09:57→21:19)
[2021-09-01] MEDS: PANTOPRAZOLE 40 MG TABLET PO SCH (09:58)
[2021-09-01] MEDS: GABAPENTIN 100 MG CAPSULE PO SCH ×3 (09:58→21:20)
[2021-09-01] MEDS: carvediloL 25 MG TABLET PO SCH ×2 (09:58→21:19)
[2021-09-01] MEDS: HEPARIN 5,000 UNIT/1 ML VIAL SUBCUT SCH ×2 (10:02→23:13)
[2021-09-01] MEDS: SODIUM BICARB INJ 50 MEQ in SODIUM CHLORIDE 0.45% 1,000 ML IV SCH (10:06)
[2021-09-01] MEDS: ATORVASTATIN 40 MG TABLET PO SCH (21:19)
[2021-09-01] MEDS: MELATONIN 3 MG TABLET PO PRN (21:19)
[2021-09-02 06:29] LABS: Basophils % 0.5 % (0.0-0.8); Eosinophils # 0.2 10*3/uL (0.0-0.87); Eosinophils % 1.9 % (0.00-10.9); Immature Granulocytes % 0.2 %; Immature Granulocytes Absolute 0.02 #; Lymphocytes # 2.2 10*3/uL (1.4-4.0); Lymphocytes % 26.3 % (21.2-54.2); Mean Corpuscular HGB Conc 33.3 GM/DL (32-36); Mean Corpuscular Volume 93.8 FL (87-102); Monocytes % 11.6 % (1.7-12.7); Neutrophils % 59.5 % (38.7-73.9); Platelet Count 167 T/CUMM (130-400); Red Blood Count 2.56 MC/CUMM (3.8-5.5); Red Cell Distribution Width 12.3 % (9.3-17.3); White Blood Count 8.3 T/CUMM (4-12)
[2021-09-02 06:59] LABS: Calcium 7.6 MG/DL (8.5-10.1); Osmolality,Calculated 292.4 MOS/KG (273-304); Potassium 3.6 MMOL/L (3.5-5.1)
[2021-09-02] MEDS: INSULIN LISPRO 100 UNIT/ML SUBCUT SCH ×4 (08:11→20:35)
[2021-09-02] MEDS: PANTOPRAZOLE 40 MG TABLET PO SCH (09:24)
[2021-09-02] MEDS: carvediloL 25 MG TABLET PO SCH ×2 (09:24→20:33)
[2021-09-02] MEDS: MULTIVITAMIN (CENTRUM) TABLET PO SCH (09:24)
[2021-09-02] MEDS: GABAPENTIN 100 MG CAPSULE PO SCH ×3 (09:24→20:33)
[2021-09-02] MEDS: hydrALAZINE 25 MG TABLET PO SCH ×3 (09:24→20:32)
[2021-09-02] MEDS: HEPARIN 5,000 UNIT/1 ML VIAL SUBCUT SCH (12:07)
[2021-09-02] MEDS: ATORVASTATIN 40 MG TABLET PO SCH (20:33)
[2021-09-03] MEDS: HEPARIN 5,000 UNIT/1 ML VIAL SUBCUT SCH ×4 (00:40→23:55)
[2021-09-03 06:54] LABS: Basophils % 0.5 % (0.0-0.8); Eosinophils # 0.2 10*3/uL (0.0-0.87); Eosinophils % 2.4 % (0.00-10.9); Hematocrit 24.2 VOL% (42.0-52.0); Hemoglobin 8.1 GM/DL (14.0-18.0); Immature Granulocytes % 0.5 %; Immature Granulocytes Absolute 0.04 #; Lymphocytes % 25.9 % (21.2-54.2); Mean Corpuscular HGB Conc 33.5 GM/DL (32-36); Mean Corpuscular Volume 93.4 FL (87-102); Mean Platelet Volume 10.5 FL (9.6-12.0); Monocytes % 10.8 % (1.7-12.7); Neutrophils % 59.9 % (38.7-73.9); Platelet Count 190 T/CUMM (130-400); Red Blood Count 2.59 MC/CUMM (3.8-5.5); Red Cell Distribution Width 12.4 % (9.3-17.3); White Blood Count 7.6 T/CUMM (4-12)
[2021-09-03 07:29] LABS: Albumin 2.9 G/DL (3.4-5.0); Calcium 7.5 MG/DL (8.5-10.1); Osmolality,Calculated 299.4 MOS/KG (273-304); Potassium 3.6 MMOL/L (3.5-5.1); Total Protein 6.6 G/DL (6.4-8.2)
[2021-09-03] MEDS: MULTIVITAMIN (CENTRUM) TABLET PO SCH (09:23)
[2021-09-03] MEDS: GABAPENTIN 100 MG CAPSULE PO SCH ×3 (09:24→20:32)
[2021-09-03] MEDS: PANTOPRAZOLE 40 MG TABLET PO SCH (09:24)
[2021-09-03] MEDS: hydrALAZINE 25 MG TABLET PO SCH ×3 (09:24→20:33)
[2021-09-03] MEDS: carvediloL 25 MG TABLET PO SCH ×2 (09:24→20:33)
[2021-09-03] MEDS: INSULIN LISPRO 100 UNIT/ML SUBCUT SCH ×4 (09:32→20:33)
[2021-09-03] MEDS: ATORVASTATIN 40 MG TABLET PO SCH (20:32)
[2021-09-04] MEDS: INSULIN LISPRO 100 UNIT/ML SUBCUT SCH ×4 (08:52→20:55)
[2021-09-04] MEDS: PANTOPRAZOLE 40 MG TABLET PO SCH (08:55)
[2021-09-04] MEDS: GABAPENTIN 100 MG CAPSULE PO SCH ×3 (09:00→20:55)
[2021-09-04] MEDS: hydrALAZINE 25 MG TABLET PO SCH ×3 (09:00→20:55)
[2021-09-04] MEDS: MULTIVITAMIN (CENTRUM) TABLET PO SCH (09:00)
[2021-09-04] MEDS: carvediloL 25 MG TABLET PO SCH ×2 (09:00→20:55)
[2021-09-04] MEDS: HEPARIN 5,000 UNIT/1 ML VIAL SUBCUT SCH ×2 (11:38→22:36)
[2021-09-04] MEDS: ATORVASTATIN 40 MG TABLET PO SCH (20:55)
[2021-09-05 05:59] LABS: Basophils # 0.1 10*3/uL (0.0-0.2); Basophils % 0.6 % (0.0-0.8); Eosinophils # 0.2 10*3/uL (0.0-0.87); Eosinophils % 2.8 % (0.00-10.9); Hematocrit 26.6 VOL% (42.0-52.0); Hemoglobin 8.8 GM/DL (14.0-18.0); Immature Granulocytes % 0.5 %; Immature Granulocytes Absolute 0.04 #; Lymphocytes # 1.9 10*3/uL (1.4-4.0); Lymphocytes % 24.7 % (21.2-54.2); Mean Corpuscular HGB Conc 33.1 GM/DL (32-36); Mean Corpuscular Volume 94.7 FL (87-102); Mean Platelet Volume 9.9 FL (9.6-12.0); Monocytes % 11.2 % (1.7-12.7); Neutrophils % 60.2 % (38.7-73.9); Platelet Count 296 T/CUMM (130-400); Red Blood Count 2.81 MC/CUMM (3.8-5.5); Red Cell Distribution Width 12.3 % (9.3-17.3); White Blood Count 7.7 T/CUMM (4-12)
[2021-09-05 06:15] LABS: Calcium 7.9 MG/DL (8.5-10.1); Osmolality,Calculated 294.2 MOS/KG (273-304); Potassium 3.6 MMOL/L (3.5-5.1)
[2021-09-05] MEDS: carvediloL 25 MG TABLET PO SCH (08:44)
[2021-09-05] MEDS: MULTIVITAMIN (CENTRUM) TABLET PO SCH (08:44)
[2021-09-05] MEDS: hydrALAZINE 25 MG TABLET PO SCH ×2 (08:44→14:59)
[2021-09-05] MEDS: GABAPENTIN 100 MG CAPSULE PO SCH ×2 (08:44→14:59)
[2021-09-05] MEDS: PANTOPRAZOLE 40 MG TABLET PO SCH (08:44)
[2021-09-05] MEDS: INSULIN LISPRO 100 UNIT/ML SUBCUT SCH ×3 (08:44→16:19)
[2021-09-05] MEDS: HEPARIN 5,000 UNIT/1 ML VIAL SUBCUT SCH (12:18)
[2021-09-05 18:28] VITALS: BP 168/74
== END 2021-09-05 18:29 | disposition home or self-care (01) | DRG 313 ==
LOC: N.ED 13:35 → N.EDINP 13:35 → SUATTDRO 16:26 → N.TELEN 17:20
PROVIDERS: ADMIT Emergency Medicine; ATTEND Emergency Medicine

== ENCOUNTER 2022-03-31 17:21 | Inpatient (IN) ==
[2022-03-31] MEDS: MIDAZOLAM 100 MG in SODIUM CHLORIDE 0.9% 80 ML IV PRN (20:29)
[2022-03-31 20:32] LABS: Basophils % 0.5 % (0.0-0.8); Hematocrit 42.7 VOL% (42.0-52.0); Hemoglobin 13.5 GM/DL (14.0-18.0); Immature Granulocytes % 0.2 %; Immature Granulocytes Absolute 0.01 #; Lymphocytes # 0.8 10*3/uL (1.4-4.0); Lymphocytes % 19.8 % (21.2-54.2); Mean Corpuscular HGB Conc 31.6 GM/DL (32-36); Mean Corpuscular Volume 93.2 FL (87-102); Mean Platelet Volume 10.1 FL (9.6-12.0); Monocytes # 0.3 10*3/uL (0.11-0.8); Neutrophils % 71.5 % (38.7-73.9); Platelet Count 214 T/CUMM (130-400); Red Blood Count 4.58 MC/CUMM (3.8-5.5); Red Cell Distribution Width 13.8 % (9.3-17.3); White Blood Count 4.2 T/CUMM (4-12)
[2022-03-31 20:37] LABS: Arterial Base Excess iSTAT -6 MMOL/L (-2.5-2.5); Arterial Bicarbonate iSTAT 19.3 MMOL/L (20-26); Arterial O2 Saturation iSTAT 94 % (95-100); Arterial PCO2 iSTAT 39 MM HG (35-48); Arterial PO2 iSTAT 78 MM HG (80-95); Arterial Total CO2 iSTAT 21 MMO/L (23-27); Arterial pH iSTAT 7.308 (7.35-7.45)
[2022-03-31 20:41] LABS: INR 1.2
[2022-03-31 20:56] LABS: Alanine Aminotransferase 12 U/L (16-61); Albumin 1.4 G/DL (3.4-5.0); Alkaline Phosphatase 56 U/L (45-117); Aspartate Amino Transferase 16 U/L (0-37); Bilirubin,Total < 0.39 MG/DL (0.20-1.00); Blood Urea Nitrogen 78 MG/DL (7-18); Calcium 7.9 MG/DL (8.5-10.1); Carbon Dioxide 20 MMOL/L (21-32); Chloride 107 MMOL/L (98-107); Glucose 87 MG/DL (74-106); Osmolality,Calculated 304.1 MOS/KG (273-304); Potassium 4.1 MMOL/L (3.5-5.1); Sodium 142 MMOL/L (136-145); Total Protein 4.7 G/DL (6.4-8.2)
[2022-03-31] MEDS ORDERED: ONDANSETRON 4 MG/2 ML VIAL IV PRN (21:09)
[2022-03-31] MEDS ORDERED: ALBUTEROL 2.5 MG/3 ML NEB RESP TX PRN (21:09)
[2022-03-31] MEDS ORDERED: diphenhydrAMINE 50 MG/1 ML VIAL IV ONE (21:09)
[2022-03-31] MEDS ORDERED: methylPREDNISolone SOD SUC 125 MG/2 ML VIAL IV ONE (21:10)
[2022-03-31 21:28] LABS: Band Neutrophils 23 % (0-10); Lymphocytes 16 % (20-55); Metamyelocytes 1 %; Nucleated Red Blood Cells 1 (0-5); Total Cells Counted 100
[2022-03-31 21:29] LABS: Platelet Estimate Normal; Reactive Lymphocytes Slight
[2022-03-31 21:30] LABS: Anisocytosis Slight
[2022-03-31] MEDS: PANTOPRAZOLE 40 MG VIAL IV SCH (22:05)
[2022-03-31] MEDS: PIPERACILLIN/TAZOBACTAM 3,375 MG in SODIUM CHLORIDE 0.9% 100 ML IV SCH (22:46)
[2022-03-31 22:58] LABS: Arterial Base Excess iSTAT -6 MMOL/L (-2.5-2.5); Arterial Bicarbonate iSTAT 19.3 MMOL/L (20-26); Arterial O2 Saturation iSTAT 92 % (95-100); Arterial PCO2 iSTAT 38 MM HG (35-48); Arterial PO2 iSTAT 68 MM HG (80-95); Arterial Total CO2 iSTAT 20 MMO/L (23-27); Arterial pH iSTAT 7.311 (7.35-7.45)
[2022-04-01 01:23] LABS: Basophils % 0.2 % (0.0-0.8); Eosinophils # 0.2 10*3/uL (0.0-0.87); Eosinophils % 3.8 % (0.00-10.9); Hematocrit 39.9 VOL% (42.0-52.0); Hemoglobin 12.8 GM/DL (14.0-18.0); Immature Granulocytes % 1.4 %; Immature Granulocytes Absolute 0.08 #; Lymphocytes # 0.6 10*3/uL (1.4-4.0); Lymphocytes % 11.6 % (21.2-54.2); Mean Corpuscular HGB Conc 32.1 GM/DL (32-36); Mean Corpuscular Volume 92.6 FL (87-102); Mean Platelet Volume 10.1 FL (9.6-12.0); Monocytes # 0.3 10*3/uL (0.11-0.8); Monocytes % 5.4 % (1.7-12.7); Neutrophils % 77.6 % (38.7-73.9); Platelet Count 197 T/CUMM (130-400); Red Blood Count 4.31 MC/CUMM (3.8-5.5); White Blood Count 5.5 T/CUMM (4-12)
[2022-04-01 01:53] LABS: Alanine Aminotransferase 13 U/L (16-61); Albumin 1.3 G/DL (3.4-5.0); Alkaline Phosphatase 55 U/L (45-117); Aspartate Amino Transferase 20 U/L (0-37); Bilirubin,Total < 0.39 MG/DL (0.20-1.00); Blood Urea Nitrogen 83 MG/DL (7-18); Calcium 8.2 MG/DL (8.5-10.1); Carbon Dioxide 15 MMOL/L (21-32); Chloride 108 MMOL/L (98-107); Glucose 131 MG/DL (74-106); Osmolality,Calculated 307.3 MOS/KG (273-304); Potassium 4.5 MMOL/L (3.5-5.1); Sodium 141 MMOL/L (136-145); Total Protein 4.7 G/DL (6.4-8.2)
[2022-04-01 02:09] LABS: Lymphocytes 22 % (20-55); Platelet Estimate Adequate
[2022-04-01 02:37] LABS: Band Neutrophils 10 % (0-10); Total Cells Counted 100
[2022-04-01 04:21] LABS: Arterial Base Excess iSTAT -6 MMOL/L (-2.5-2.5); Arterial Bicarbonate iSTAT 19.5 MMOL/L (20-26); Arterial O2 Saturation iSTAT 97 % (95-100); Arterial PCO2 iSTAT 39 MM HG (35-48); Arterial PO2 iSTAT 97 MM HG (80-95); Arterial Total CO2 iSTAT 21 MMO/L (23-27); Arterial pH iSTAT 7.308 (7.35-7.45)
[2022-04-01] MEDS: INSULIN LISPRO 100 UNIT/ML SUBCUT SCH ×3 (06:25→17:00)
[2022-04-01] MEDS: methylPREDNISolone SOD SUC 40 MG/1 ML VIAL IV SCH ×3 (06:25→22:21)
[2022-04-01] MEDS: ALBUTEROL/IPRATROPIUM 3 ML NEB RESP TX SCH ×3 (07:02→19:35)
[2022-04-01] MEDS: hydrALAZINE 20 MG/1 ML VIAL IV PRN (07:26)
[2022-04-01] MEDS: PIPERACILLIN/TAZOBACTAM 3,375 MG in SODIUM CHLORIDE 0.9% 100 ML IV SCH ×2 (09:11→22:00)
[2022-04-01] MEDS: MIDAZOLAM 100 MG in SODIUM CHLORIDE 0.9% 80 ML IV PRN (14:08)
[2022-04-01] MEDS: PANTOPRAZOLE 40 MG VIAL IV SCH (22:21)
[2022-04-02] MEDS: ALBUTEROL/IPRATROPIUM 3 ML NEB RESP TX SCH ×4 (00:42→20:03)
[2022-04-02] MEDS: INSULIN LISPRO 100 UNIT/ML SUBCUT SCH ×5 (00:56→23:58)
[2022-04-02] MEDS: NEOMYCIN/POLYMYXIN/BACITRACIN OINT 0.9 GM PACK TOP PRN ×2 (01:49→14:35)
[2022-04-02] MEDS ORDERED: MORPHINE 2 MG/1 ML SYRINGE IV ONE ×2 (01:56→16:51)
[2022-04-02 05:08] LABS: Basophils # 0.1 10*3/uL (0.0-0.2); Basophils % 0.3 % (0.0-0.8); Eosinophils # 0.1 10*3/uL (0.0-0.87); Eosinophils % 0.5 % (0.00-10.9); Hematocrit 40.2 VOL% (42.0-52.0); Hemoglobin 12.7 GM/DL (14.0-18.0); Immature Granulocytes % 0.8 %; Immature Granulocytes Absolute 0.12 #; Lymphocytes # 0.6 10*3/uL (1.4-4.0); Lymphocytes % 3.8 % (21.2-54.2); Mean Corpuscular HGB Conc 31.6 GM/DL (32-36); Mean Corpuscular Volume 91.8 FL (87-102); Mean Platelet Volume 10.6 FL (9.6-12.0); Monocytes # 0.9 10*3/uL (0.11-0.8); Monocytes % 5.7 % (1.7-12.7); Neutrophils % 88.9 % (38.7-73.9); Platelet Count 201 T/CUMM (130-400); Red Blood Count 4.38 MC/CUMM (3.8-5.5); Red Cell Distribution Width 14.5 % (9.3-17.3); White Blood Count 15.4 T/CUMM (4-12)
[2022-04-02 05:32] LABS: Albumin 1.4 G/DL (3.4-5.0); Bilirubin,Total 0.4 MG/DL (0.20-1.00); Calcium 8.6 MG/DL (8.5-10.1); Osmolality,Calculated 312.3 MOS/KG (273-304); Potassium 3.9 MMOL/L (3.5-5.1); Total Protein 5.5 G/DL (6.4-8.2)
[2022-04-02 05:33] LABS: Band Neutrophils 8 % (0-10); Lymphocytes 4 % (20-55); Platelet Estimate Adequate; Total Cells Counted 100
[2022-04-02 05:47] LABS: ABG Base Excess -1.4 MMOL/L (-2.5-2.5); ABG HCO3 23.3 MMOL/L (20-26); ABG Oxygen Saturation 98.3 % (95-100); ABG PCO2 40.9 MM HG (35-48); ABG PH 7.373 (7.35-7.45); ABG TCO2 20.9 MMOL/L (23-27)
[2022-04-02] MEDS: methylPREDNISolone SOD SUC 40 MG/1 ML VIAL IV SCH ×3 (06:24→21:05)
[2022-04-02] MEDS: PIPERACILLIN/TAZOBACTAM 3,375 MG in SODIUM CHLORIDE 0.9% 100 ML IV SCH ×2 (09:07→21:04)
[2022-04-02] MEDS: hydrALAZINE 20 MG/1 ML VIAL IV PRN ×3 (11:45→23:31)
[2022-04-02] MEDS: LOSARTAN 50 MG TABLET PO SCH (20:53)
[2022-04-02] MEDS: carvediloL 12.5 MG TABLET PO SCH (20:53)
[2022-04-02] MEDS: PANTOPRAZOLE 40 MG VIAL IV SCH (21:05)
[2022-04-02] MEDS: MIDAZOLAM 100 MG in SODIUM CHLORIDE 0.9% 80 ML IV PRN (23:42)
[2022-04-03] MEDS: NEOMYCIN/POLYMYXIN/BACITRACIN OINT 0.9 GM PACK TOP PRN (01:58)
[2022-04-03 04:39] LABS: Basophils % 0.2 % (0.0-0.8); Hematocrit 38.2 VOL% (42.0-52.0); Hemoglobin 12.2 GM/DL (14.0-18.0); Immature Granulocytes % 0.7 %; Immature Granulocytes Absolute 0.12 #; Lymphocytes # 0.5 10*3/uL (1.4-4.0); Lymphocytes % 3.2 % (21.2-54.2); Mean Corpuscular HGB Conc 31.9 GM/DL (32-36); Mean Corpuscular Volume 90.1 FL (87-102); Mean Platelet Volume 10.8 FL (9.6-12.0); Monocytes # 0.9 10*3/uL (0.11-0.8); Monocytes % 5.4 % (1.7-12.7); NRBC # 0.02 10*3/uL; Neutrophils % 90.5 % (38.7-73.9); Platelet Count 188 T/CUMM (130-400); Red Blood Count 4.24 MC/CUMM (3.8-5.5); Red Cell Distribution Width 14.4 % (9.3-17.3); White Blood Count 16.4 T/CUMM (4-12)
[2022-04-03 04:59] LABS: Alanine Aminotransferase 11 U/L (16-61); Albumin 1.3 G/DL (3.4-5.0); Alkaline Phosphatase 54 U/L (45-117); Aspartate Amino Transferase 8 U/L (0-37); Bilirubin,Total < 0.39 MG/DL (0.20-1.00); Blood Urea Nitrogen 89 MG/DL (7-18); Calcium 8.5 MG/DL (8.5-10.1); Carbon Dioxide 23 MMOL/L (21-32); Chloride 104 MMOL/L (98-107); Glucose 258 MG/DL (74-106); Osmolality,Calculated 312.5 MOS/KG (273-304); Potassium 4.1 MMOL/L (3.5-5.1); Sodium 139 MMOL/L (136-145)
[2022-04-03 05:10] LABS: Band Neutrophils 1 % (0-10); Lymphocytes 2 % (20-55); Total Cells Counted 100
[2022-04-03 05:11] LABS: Platelet Estimate Adequate
[2022-04-03] MEDS: methylPREDNISolone SOD SUC 40 MG/1 ML VIAL IV SCH ×3 (05:28→22:18)
[2022-04-03] MEDS: INSULIN LISPRO 100 UNIT/ML SUBCUT SCH ×3 (05:29→19:00)
[2022-04-03] MEDS: hydrALAZINE 20 MG/1 ML VIAL IV PRN ×3 (06:25→19:00)
[2022-04-03] MEDS: ALBUTEROL/IPRATROPIUM 3 ML NEB RESP TX SCH ×4 (06:58→18:13)
[2022-04-03] MEDS ORDERED: methylPREDNISolone SOD SUC 40 MG/1 ML VIAL IV SCH (09:00)
[2022-04-03] MEDS: DOCUSATE SODIUM 100 MG CAPSULE PO SCH (09:22)
[2022-04-03] MEDS: carvediloL 12.5 MG TABLET PO SCH ×2 (09:25→19:00)
[2022-04-03] MEDS: PIPERACILLIN/TAZOBACTAM 3,375 MG in SODIUM CHLORIDE 0.9% 100 ML IV SCH ×2 (10:00→21:38)
[2022-04-03] MEDS ORDERED: VANCOMYCIN INJ 1,500 MG in SODIUM CHLORIDE 0.9% 500 ML IV ONE (11:00)
[2022-04-03] MEDS: HEPARIN 5,000 UNIT/1 ML VIAL SUBCUT SCH ×2 (12:20→20:23)
[2022-04-03] MEDS ORDERED: GLUCAGON 1 MG VIAL IM PRN (13:23)
[2022-04-03] MEDS ORDERED: DEXTROSE 10% 250 ML BAG IV PRN (13:23)
[2022-04-03] MEDS: LOSARTAN 50 MG TABLET PO SCH (20:22)
[2022-04-03] MEDS: PANTOPRAZOLE 40 MG VIAL IV SCH (21:39)
[2022-04-04] MEDS: ALBUTEROL/IPRATROPIUM 3 ML NEB RESP TX SCH ×4 (00:02→20:20)
[2022-04-04] MEDS: INSULIN LISPRO 100 UNIT/ML SUBCUT SCH ×4 (00:10→18:12)
[2022-04-04] MEDS: HEPARIN 5,000 UNIT/1 ML VIAL SUBCUT SCH ×3 (03:12→20:14)
[2022-04-04 05:27] LABS: Phosphorous 5.6 MG/DL (2.5-4.9)
[2022-04-04] MEDS: DOCUSATE SODIUM 100 MG CAPSULE PO SCH (09:31)
[2022-04-04] MEDS: carvediloL 12.5 MG TABLET PO SCH ×2 (09:34→17:43)
[2022-04-04] MEDS: PIPERACILLIN/TAZOBACTAM 3,375 MG in SODIUM CHLORIDE 0.9% 100 ML IV SCH ×2 (10:16→22:35)
[2022-04-04] MEDS: methylPREDNISolone SOD SUC 40 MG/1 ML VIAL IV SCH (11:50)
[2022-04-04] MEDS: MIDAZOLAM 100 MG in SODIUM CHLORIDE 0.9% 80 ML IV PRN (13:40)
[2022-04-04] MEDS: LOSARTAN 50 MG TABLET PO SCH (20:14)
[2022-04-04] MEDS: PANTOPRAZOLE 40 MG VIAL IV SCH (21:36)
[2022-04-05] MEDS: methylPREDNISolone SOD SUC 40 MG/1 ML VIAL IV SCH ×2 (00:02→11:35)
[2022-04-05] MEDS: INSULIN LISPRO 100 UNIT/ML SUBCUT SCH ×4 (00:03→18:22)
[2022-04-05] MEDS: ALBUTEROL/IPRATROPIUM 3 ML NEB RESP TX SCH ×4 (00:18→19:50)
[2022-04-05] MEDS: HEPARIN 5,000 UNIT/1 ML VIAL SUBCUT SCH ×3 (04:04→19:53)
[2022-04-05] MEDS: hydrALAZINE 20 MG/1 ML VIAL IV PRN (04:48)
[2022-04-05 05:57] LABS: Basophils % 0.2 % (0.0-0.8); Hematocrit 46.5 VOL% (42.0-52.0); Hemoglobin 14.8 GM/DL (14.0-18.0); Immature Granulocytes Absolute 0.25 #; Lymphocytes # 0.6 10*3/uL (1.4-4.0); Lymphocytes % 5.1 % (21.2-54.2); Mean Corpuscular HGB Conc 31.8 GM/DL (32-36); Mean Corpuscular Volume 91.7 FL (87-102); Mean Platelet Volume 10.5 FL (9.6-12.0); Monocytes # 1.3 10*3/uL (0.11-0.8); Monocytes % 10.7 % (1.7-12.7); NRBC # 0.07 10*3/uL; Platelet Count 190 T/CUMM (130-400); Red Blood Count 5.07 MC/CUMM (3.8-5.5); Red Cell Distribution Width 14.2 % (9.3-17.3); White Blood Count 12.4 T/CUMM (4-12)
[2022-04-05 06:31] LABS: Albumin 1.6 G/DL (3.4-5.0); Bilirubin,Total 0.4 MG/DL (0.20-1.00); Calcium 8.9 MG/DL (8.5-10.1); Osmolality,Calculated 304.8 MOS/KG (273-304); Potassium 3.8 MMOL/L (3.5-5.1); Total Protein 5.9 G/DL (6.4-8.2)
[2022-04-05] MEDS: carvediloL 12.5 MG TABLET PO SCH ×2 (09:37→16:59)
[2022-04-05] MEDS: DOCUSATE SODIUM 100 MG CAPSULE PO SCH (09:38)
[2022-04-05] MEDS: PIPERACILLIN/TAZOBACTAM 3,375 MG in SODIUM CHLORIDE 0.9% 100 ML IV SCH ×2 (10:02→22:06)
[2022-04-05 11:20] LABS: Arterial Base Excess iSTAT 4 MMOL/L (-2.5-2.5); Arterial Bicarbonate iSTAT 28.8 MMOL/L (20-26); Arterial O2 Saturation iSTAT 100 % (95-100); Arterial PCO2 iSTAT 44 MM HG (35-48); Arterial PO2 iSTAT 185 MM HG (80-95); Arterial Total CO2 iSTAT 30 MMO/L (23-27); Arterial pH iSTAT 7.426 (7.35-7.45)
[2022-04-05] MEDS: METOCLOPRAMIDE 10 MG/2 ML VIAL IV SCH ×2 (11:37→18:22)
[2022-04-05] MEDS: LOSARTAN 50 MG TABLET PO SCH (20:04)
[2022-04-05] MEDS: PANTOPRAZOLE 40 MG VIAL IV SCH (22:06)
[2022-04-06] MEDS: INSULIN LISPRO 100 UNIT/ML SUBCUT SCH ×4 (00:47→18:17)
[2022-04-06] MEDS: METOCLOPRAMIDE 10 MG/2 ML VIAL IV SCH ×4 (00:47→18:15)
[2022-04-06] MEDS: ALBUTEROL/IPRATROPIUM 3 ML NEB RESP TX SCH ×4 (00:55→19:37)
[2022-04-06] MEDS: HEPARIN 5,000 UNIT/1 ML VIAL SUBCUT SCH ×3 (03:57→21:17)
[2022-04-06 04:35] LABS: Basophils % 0.3 % (0.0-0.8); Eosinophils % 0.1 % (0.00-10.9); Hematocrit 43.8 VOL% (42.0-52.0); Hemoglobin 13.9 GM/DL (14.0-18.0); Immature Granulocytes % 2.1 %; Immature Granulocytes Absolute 0.32 #; Lymphocytes # 1.1 10*3/uL (1.4-4.0); Lymphocytes % 7.4 % (21.2-54.2); Mean Corpuscular HGB Conc 31.7 GM/DL (32-36); Mean Corpuscular Volume 91.3 FL (87-102); Mean Platelet Volume 10.4 FL (9.6-12.0); Monocytes # 1.8 10*3/uL (0.11-0.8); Monocytes % 11.9 % (1.7-12.7); NRBC # 0.03 10*3/uL; Neutrophils % 78.2 % (38.7-73.9); Platelet Count 183 T/CUMM (130-400); Red Cell Distribution Width 13.9 % (9.3-17.3); White Blood Count 15.2 T/CUMM (4-12)
[2022-04-06] MEDS: hydrALAZINE 20 MG/1 ML VIAL IV PRN (04:35)
[2022-04-06 04:36] LABS: Arterial Base Excess iSTAT 3 MMOL/L (-2.5-2.5); Arterial Bicarbonate iSTAT 28.7 MMOL/L (20-26); Arterial O2 Saturation iSTAT 95 % (95-100); Arterial PCO2 iSTAT 47 MM HG (35-48); Arterial PO2 iSTAT 76 MM HG (80-95); Arterial Total CO2 iSTAT 30 MMO/L (23-27); Arterial pH iSTAT 7.397 (7.35-7.45)
[2022-04-06 04:51] LABS: Albumin 1.7 G/DL (3.4-5.0); Bilirubin,Total 0.4 MG/DL (0.20-1.00); Calcium 8.5 MG/DL (8.5-10.1); Osmolality,Calculated 306.7 MOS/KG (273-304); Potassium 3.6 MMOL/L (3.5-5.1); Total Protein 5.4 G/DL (6.4-8.2)
[2022-04-06 05:52] LABS: Band Neutrophils 3 % (0-10); Lymphocytes 6 % (20-55); Myelocytes 1 %; Platelet Estimate Normal; Total Cells Counted 100
[2022-04-06 05:53] LABS: Anisocytosis Slight; Macrocytosis Slight
[2022-04-06] MEDS: carvediloL 12.5 MG TABLET PO SCH ×2 (08:25→17:54)
[2022-04-06] MEDS: DOCUSATE SODIUM 100 MG CAPSULE PO SCH (08:25)
[2022-04-06] MEDS ORDERED: VANCOMYCIN INJ 1,500 MG in SODIUM CHLORIDE 0.9% 500 ML IV ONE (10:00)
[2022-04-06] MEDS: PIPERACILLIN/TAZOBACTAM 3,375 MG in SODIUM CHLORIDE 0.9% 100 ML IV SCH ×2 (10:13→21:44)
[2022-04-06] MEDS: LOSARTAN 50 MG TABLET PO SCH (21:18)
[2022-04-06] MEDS: PANTOPRAZOLE 40 MG VIAL IV SCH (21:24)
[2022-04-07] MEDS: ALBUTEROL/IPRATROPIUM 3 ML NEB RESP TX SCH ×4 (00:09→19:18)
[2022-04-07] MEDS: INSULIN LISPRO 100 UNIT/ML SUBCUT SCH ×4 (01:01→18:04)
[2022-04-07] MEDS: METOCLOPRAMIDE 10 MG/2 ML VIAL IV SCH ×4 (01:07→18:03)
[2022-04-07] MEDS: HEPARIN 5,000 UNIT/1 ML VIAL SUBCUT SCH ×3 (03:25→20:46)
[2022-04-07 04:32] LABS: ABG Base Excess 2.1 MMOL/L (-2.5-2.5); ABG HCO3 26.3 MMOL/L (20-26); ABG Oxygen Saturation 99.2 % (95-100); ABG PCO2 44.3 MM HG (35-48); ABG TCO2 23.6 MMOL/L (23-27)
[2022-04-07] MEDS: hydrALAZINE 20 MG/1 ML VIAL IV PRN (04:39)
[2022-04-07 05:33] LABS: Basophils % 0.2 % (0.0-0.8); Eosinophils # 0.1 10*3/uL (0.0-0.87); Eosinophils % 0.4 % (0.00-10.9); Hematocrit 43.8 VOL% (42.0-52.0); Hemoglobin 13.8 GM/DL (14.0-18.0); Immature Granulocytes % 1.9 %; Immature Granulocytes Absolute 0.31 #; Lymphocytes # 1.1 10*3/uL (1.4-4.0); Lymphocytes % 6.5 % (21.2-54.2); Mean Corpuscular HGB Conc 31.5 GM/DL (32-36); Mean Corpuscular Volume 91.3 FL (87-102); Mean Platelet Volume 10.9 FL (9.6-12.0); Monocytes # 1.3 10*3/uL (0.11-0.8); Monocytes % 8.1 % (1.7-12.7); Neutrophils % 82.9 % (38.7-73.9); Platelet Count 188 T/CUMM (130-400); Red Cell Distribution Width 13.7 % (9.3-17.3); White Blood Count 16.4 T/CUMM (4-12)
[2022-04-07 05:49] LABS: Albumin 1.7 G/DL (3.4-5.0); Bilirubin,Total 0.6 MG/DL (0.20-1.00); Calcium 8.5 MG/DL (8.5-10.1); Osmolality,Calculated 303.7 MOS/KG (273-304); Potassium 3.3 MMOL/L (3.5-5.1); Total Protein 5.4 G/DL (6.4-8.2)
[2022-04-07 06:45] LABS: Lymphocytes 5 % (20-55); Microcytosis Slight; Platelet Estimate Adequate; Polychromasia Slight; Total Cells Counted 100
[2022-04-07] MEDS: carvediloL 12.5 MG TABLET PO SCH ×2 (08:46→16:55)
[2022-04-07] MEDS: DOCUSATE SODIUM 100 MG CAPSULE PO SCH (08:46)
[2022-04-07] MEDS: PIPERACILLIN/TAZOBACTAM 3,375 MG in SODIUM CHLORIDE 0.9% 100 ML IV SCH ×2 (09:02→22:11)
[2022-04-07] MEDS: LOSARTAN 50 MG TABLET PO SCH (20:47)
[2022-04-07] MEDS: PANTOPRAZOLE 40 MG VIAL IV SCH (22:11)
[2022-04-08] MEDS: ALBUTEROL/IPRATROPIUM 3 ML NEB RESP TX SCH ×4 (00:20→22:48)
[2022-04-08] MEDS: INSULIN LISPRO 100 UNIT/ML SUBCUT SCH ×4 (00:53→18:00)
[2022-04-08] MEDS: METOCLOPRAMIDE 10 MG/2 ML VIAL IV SCH ×4 (00:58→18:00)
[2022-04-08] MEDS: HEPARIN 5,000 UNIT/1 ML VIAL SUBCUT SCH ×3 (03:16→21:00)
[2022-04-08 04:20] LABS: Arterial Base Excess iSTAT 4 MMOL/L (-2.5-2.5); Arterial Bicarbonate iSTAT 27.7 MMOL/L (20-26); Arterial O2 Saturation iSTAT 100 % (95-100); Arterial PCO2 iSTAT 40 MM HG (35-48); Arterial PO2 iSTAT 172 MM HG (80-95); Arterial Total CO2 iSTAT 29 MMO/L (23-27); Arterial pH iSTAT 7.453 (7.35-7.45)
[2022-04-08 06:26] LABS: Basophils % 0.2 % (0.0-0.8); Eosinophils # 0.1 10*3/uL (0.0-0.87); Eosinophils % 0.8 % (0.00-10.9); Hematocrit 38.7 VOL% (42.0-52.0); Hemoglobin 12.4 GM/DL (14.0-18.0); Immature Granulocytes % 1.7 %; Immature Granulocytes Absolute 0.31 #; Lymphocytes % 5.5 % (21.2-54.2); Mean Corpuscular Volume 91.5 FL (87-102); Mean Platelet Volume 10.8 FL (9.6-12.0); Monocytes # 1.1 10*3/uL (0.11-0.8); Monocytes % 5.7 % (1.7-12.7); Neutrophils % 86.1 % (38.7-73.9); Platelet Count 186 T/CUMM (130-400); Red Blood Count 4.23 MC/CUMM (3.8-5.5); Red Cell Distribution Width 13.7 % (9.3-17.3); White Blood Count 18.6 T/CUMM (4-12)
[2022-04-08 06:44] LABS: Albumin 1.4 G/DL (3.4-5.0); Bilirubin,Total 0.5 MG/DL (0.20-1.00); Calcium 8.3 MG/DL (8.5-10.1); Osmolality,Calculated 306.7 MOS/KG (273-304); Potassium 3.2 MMOL/L (3.5-5.1); Total Protein 4.9 G/DL (6.4-8.2)
[2022-04-08] MEDS: PIPERACILLIN/TAZOBACTAM 3,375 MG in SODIUM CHLORIDE 0.9% 100 ML IV SCH (09:16)
[2022-04-08] MEDS: carvediloL 12.5 MG TABLET PO SCH ×2 (09:16→18:00)
[2022-04-08] MEDS: DOCUSATE SODIUM 100 MG CAPSULE PO SCH (09:16)
[2022-04-08] MEDS ORDERED: MIDAZOLAM 100 MG in SODIUM CHLORIDE 0.9% 80 ML IV PRN (14:15)
[2022-04-08] MEDS ORDERED: NOREPINEPHRINE 8 MG in SODIUM CHLORIDE 0.9% 242 ML IV PRN (19:13)
[2022-04-08] MEDS ORDERED: ALBUMIN 25% 12.5 GM/50 ML VIAL IV ONE (19:30)
[2022-04-08] MEDS: PANTOPRAZOLE 40 MG VIAL IV SCH (21:43)
[2022-04-08] MEDS: LOSARTAN 50 MG TABLET PO SCH (22:47)
[2022-04-09] MEDS: INSULIN LISPRO 100 UNIT/ML SUBCUT SCH ×4 (00:49→17:56)
[2022-04-09] MEDS: METOCLOPRAMIDE 10 MG/2 ML VIAL IV SCH ×4 (00:50→17:53)
[2022-04-09] MEDS: ALBUTEROL/IPRATROPIUM 3 ML NEB RESP TX SCH ×4 (01:50→18:59)
[2022-04-09 03:09] LABS: Arterial Base Excess iSTAT 5 MMOL/L (-2.5-2.5); Arterial Bicarbonate iSTAT 28.5 MMOL/L (20-26); Arterial O2 Saturation iSTAT 100 % (95-100); Arterial PCO2 iSTAT 38 MM HG (35-48); Arterial PO2 iSTAT 181 MM HG (80-95); Arterial Total CO2 iSTAT 30 MMO/L (23-27); Arterial pH iSTAT 7.483 (7.35-7.45)
[2022-04-09] MEDS: NEOMYCIN/POLYMYXIN/BACITRACIN OINT 0.9 GM PACK TOP PRN (03:30)
[2022-04-09] MEDS: HEPARIN 5,000 UNIT/1 ML VIAL SUBCUT SCH ×3 (04:00→19:35)
[2022-04-09 04:03] LABS: Basophils % 0.1 % (0.0-0.8); Eosinophils # 0.2 10*3/uL (0.0-0.87); Eosinophils % 0.9 % (0.00-10.9); Hematocrit 35.1 VOL% (42.0-52.0); Hemoglobin 11.5 GM/DL (14.0-18.0); Immature Granulocytes % 1.9 %; Immature Granulocytes Absolute 0.33 #; Lymphocytes # 1.1 10*3/uL (1.4-4.0); Mean Corpuscular HGB Conc 32.8 GM/DL (32-36); Mean Corpuscular Volume 90.7 FL (87-102); Mean Platelet Volume 10.7 FL (9.6-12.0); Monocytes # 1.1 10*3/uL (0.11-0.8); Monocytes % 6.1 % (1.7-12.7); Platelet Count 209 T/CUMM (130-400); Red Blood Count 3.87 MC/CUMM (3.8-5.5); Red Cell Distribution Width 13.7 % (9.3-17.3); White Blood Count 17.5 T/CUMM (4-12)
[2022-04-09 04:31] LABS: Albumin 1.5 G/DL (3.4-5.0); Bilirubin,Total 0.5 MG/DL (0.20-1.00); Calcium 8.3 MG/DL (8.5-10.1); Osmolality,Calculated 303.8 MOS/KG (273-304); Potassium 2.9 MMOL/L (3.5-5.1); Total Protein 5.1 G/DL (6.4-8.2)
[2022-04-09] MEDS: POTASSIUM CHLORIDE RIDER 10 MEQ/100 ML PREMIX IV SCH ×2 (06:00→07:02)
[2022-04-09] MEDS ORDERED: VANCOMYCIN INJ 1,500 MG in SODIUM CHLORIDE 0.9% 500 ML IV PRN (08:00)
[2022-04-09] MEDS: DOCUSATE SODIUM 100 MG CAPSULE PO SCH (08:59)
[2022-04-09] MEDS: carvediloL 12.5 MG TABLET PO SCH ×2 (08:59→16:10)
[2022-04-09] MEDS: GENTAMICIN 80 MG/2 ML VIAL INTRAPERIT SCH (21:15)
[2022-04-09] MEDS: HEPARIN 10,000 UNIT/10 ML VIAL INTRAPERIT SCH (21:15)
[2022-04-09] MEDS: LOSARTAN 50 MG TABLET PO SCH (21:15)
[2022-04-09] MEDS: POTASSIUM CHLORIDE 20 MEQ TABLET PO SCH (21:15)
[2022-04-09] MEDS: PANTOPRAZOLE 40 MG VIAL IV SCH (21:16)
[2022-04-09] MEDS: VANCOMYCIN 1,000 MG VIAL INTRAPERIT SCH (21:16)
[2022-04-10] MEDS: INSULIN LISPRO 100 UNIT/ML SUBCUT SCH ×4 (01:43→18:21)
[2022-04-10] MEDS: METOCLOPRAMIDE 10 MG/2 ML VIAL IV SCH ×4 (01:43→19:34)
[2022-04-10 04:15] LABS: Arterial Base Excess iSTAT 3 MMOL/L (-2.5-2.5); Arterial Bicarbonate iSTAT 26.3 MMOL/L (20-26); Arterial O2 Saturation iSTAT 100 % (95-100); Arterial PCO2 iSTAT 35 MM HG (35-48); Arterial PO2 iSTAT 176 MM HG (80-95); Arterial Total CO2 iSTAT 27 MMO/L (23-27); Arterial pH iSTAT 7.483 (7.35-7.45)
[2022-04-10] MEDS: HEPARIN 5,000 UNIT/1 ML VIAL SUBCUT SCH ×3 (05:26→19:35)
[2022-04-10 05:37] LABS: Basophils % 0.2 % (0.0-0.8); Eosinophils # 0.2 10*3/uL (0.0-0.87); Eosinophils % 1.3 % (0.00-10.9); Hematocrit 35.9 VOL% (42.0-52.0); Hemoglobin 11.4 GM/DL (14.0-18.0); Immature Granulocytes % 1.6 %; Immature Granulocytes Absolute 0.27 #; Lymphocytes # 0.9 10*3/uL (1.4-4.0); Lymphocytes % 5.5 % (21.2-54.2); Mean Corpuscular HGB Conc 31.8 GM/DL (32-36); Mean Corpuscular Volume 91.1 FL (87-102); Mean Platelet Volume 10.5 FL (9.6-12.0); Monocytes # 1.3 10*3/uL (0.11-0.8); Monocytes % 7.8 % (1.7-12.7); Neutrophils % 83.6 % (38.7-73.9); Platelet Count 281 T/CUMM (130-400); Red Blood Count 3.94 MC/CUMM (3.8-5.5); Red Cell Distribution Width 13.6 % (9.3-17.3); White Blood Count 16.8 T/CUMM (4-12)
[2022-04-10 05:59] LABS: Albumin 1.6 G/DL (3.4-5.0); Bilirubin,Total 0.5 MG/DL (0.20-1.00); Calcium 8.3 MG/DL (8.5-10.1); Osmolality,Calculated 304.8 MOS/KG (273-304); Potassium 2.8 MMOL/L (3.5-5.1); Total Protein 5.2 G/DL (6.4-8.2)
[2022-04-10] MEDS: ALBUTEROL/IPRATROPIUM 3 ML NEB RESP TX SCH ×4 (06:49→19:12)
[2022-04-10] MEDS: POTASSIUM CHLORIDE 20 MEQ TABLET PO SCH ×2 (08:39→20:49)
[2022-04-10] MEDS: DOCUSATE SODIUM 100 MG CAPSULE PO SCH (08:40)
[2022-04-10] MEDS: carvediloL 12.5 MG TABLET PO SCH ×2 (08:40→17:04)
[2022-04-10] MEDS: INSULIN GLARGINE 100 UNIT/ML SUBCUT SCH (08:59)
[2022-04-10] MEDS: POTASSIUM CHLORIDE RIDER 10 MEQ/100 ML PREMIX IV SCH ×2 (11:14→12:17)
[2022-04-10] MEDS: ACETAMINOPHEN 325 MG TABLET PO PRN (19:39)
[2022-04-10] MEDS: GENTAMICIN 80 MG/2 ML VIAL INTRAPERIT SCH (20:49)
[2022-04-10] MEDS: LOSARTAN 50 MG TABLET PO SCH (20:49)
[2022-04-10] MEDS: HEPARIN 10,000 UNIT/10 ML VIAL INTRAPERIT SCH (20:49)
[2022-04-10] MEDS: VANCOMYCIN 1,000 MG VIAL INTRAPERIT SCH (20:51)
[2022-04-10] MEDS: PANTOPRAZOLE 40 MG VIAL IV SCH (22:10)
[2022-04-11] MEDS: ALBUTEROL/IPRATROPIUM 3 ML NEB RESP TX SCH ×4 (00:25→20:05)
[2022-04-11] MEDS: METOCLOPRAMIDE 10 MG/2 ML VIAL IV SCH ×4 (00:54→18:07)
[2022-04-11] MEDS: INSULIN LISPRO 100 UNIT/ML SUBCUT SCH ×4 (00:56→18:07)
[2022-04-11 04:50] LABS: Basophils % 0.2 % (0.0-0.8); Eosinophils # 0.3 10*3/uL (0.0-0.87); Eosinophils % 1.4 % (0.00-10.9); Hematocrit 36.9 VOL% (42.0-52.0); Hemoglobin 11.5 GM/DL (14.0-18.0); Immature Granulocytes % 1.4 %; Immature Granulocytes Absolute 0.28 #; Lymphocytes # 1.3 10*3/uL (1.4-4.0); Lymphocytes % 6.3 % (21.2-54.2); Mean Corpuscular HGB Conc 31.2 GM/DL (32-36); Mean Corpuscular Volume 92.9 FL (87-102); Mean Platelet Volume 9.7 FL (9.6-12.0); Monocytes # 2.2 10*3/uL (0.11-0.8); Monocytes % 10.5 % (1.7-12.7); Neutrophils % 80.2 % (38.7-73.9); Platelet Count 323 T/CUMM (130-400); Red Blood Count 3.97 MC/CUMM (3.8-5.5); Red Cell Distribution Width 13.8 % (9.3-17.3); White Blood Count 20.4 T/CUMM (4-12)
[2022-04-11 05:02] LABS: Osmolality,Calculated 296.1 MOS/KG (273-304); Phosphorous 4.6 MG/DL (2.5-4.9); Potassium 3.4 MMOL/L (3.5-5.1)
[2022-04-11 05:08] LABS: Arterial Base Excess iSTAT 3 MMOL/L (-2.5-2.5); Arterial Bicarbonate iSTAT 28.2 MMOL/L (20-26); Arterial O2 Saturation iSTAT 100 % (95-100); Arterial PCO2 iSTAT 43 MM HG (35-48); Arterial PO2 iSTAT 183 MM HG (80-95); Arterial Total CO2 iSTAT 30 MMO/L (23-27); Arterial pH iSTAT 7.424 (7.35-7.45)
[2022-04-11 05:26] LABS: Eosinophils 3 % (0-10); Lymphocytes 4 % (20-55); Platelet Estimate Adequate; Total Cells Counted 100
[2022-04-11] MEDS: HEPARIN 5,000 UNIT/1 ML VIAL SUBCUT SCH ×3 (05:31→21:16)
[2022-04-11] MEDS ORDERED: VANCOMYCIN INJ 1,500 MG in SODIUM CHLORIDE 0.9% 500 ML IV PRN (07:53)
[2022-04-11] MEDS: INSULIN GLARGINE 100 UNIT/ML SUBCUT SCH (08:06)
[2022-04-11] MEDS: DOCUSATE SODIUM 100 MG CAPSULE PO SCH (08:07)
[2022-04-11] MEDS: cefTRIAXone 1,000 MG in SODIUM CHLORIDE 0.9% 100 ML IV SCH (08:07)
[2022-04-11] MEDS: POTASSIUM CHLORIDE 20 MEQ TABLET PO SCH ×2 (08:07→21:16)
[2022-04-11] MEDS: carvediloL 12.5 MG TABLET PO SCH ×2 (08:07→16:27)
[2022-04-11] MEDS ORDERED: VANCOMYCIN INJ 1,500 MG in SODIUM CHLORIDE 0.9% 500 ML IV ONE (08:30)
[2022-04-11] MEDS ORDERED: chlorproMAZINE 25 MG TABLET PO PRN (08:51)
[2022-04-11] MEDS: hydrALAZINE 20 MG/1 ML VIAL IV PRN (11:26)
[2022-04-11] MEDS: LOSARTAN 50 MG TABLET PO SCH (21:16)
[2022-04-11] MEDS: HEPARIN 10,000 UNIT/10 ML VIAL INTRAPERIT SCH (21:16)
[2022-04-11] MEDS: GENTAMICIN 80 MG/2 ML VIAL INTRAPERIT SCH (21:16)
[2022-04-11] MEDS: VANCOMYCIN 1,000 MG VIAL INTRAPERIT SCH (21:17)
[2022-04-11] MEDS: PANTOPRAZOLE 40 MG VIAL IV SCH (22:42)
[2022-04-12] MEDS: INSULIN LISPRO 100 UNIT/ML SUBCUT SCH ×4 (00:37→17:30)
[2022-04-12] MEDS: METOCLOPRAMIDE 10 MG/2 ML VIAL IV SCH ×4 (00:37→17:02)
[2022-04-12] MEDS: ALBUTEROL/IPRATROPIUM 3 ML NEB RESP TX SCH ×4 (01:12→19:45)
[2022-04-12] MEDS: HEPARIN 5,000 UNIT/1 ML VIAL SUBCUT SCH ×3 (03:12→21:59)
[2022-04-12 03:39] LABS: Arterial Base Excess iSTAT 5 MMOL/L (-2.5-2.5); Arterial Bicarbonate iSTAT 27.4 MMOL/L (20-26); Arterial O2 Saturation iSTAT 100 % (95-100); Arterial PCO2 iSTAT 33 MM HG (35-48); Arterial PO2 iSTAT 168 MM HG (80-95); Arterial Total CO2 iSTAT 28 MMO/L (23-27); Arterial pH iSTAT 7.532 (7.35-7.45)
[2022-04-12 04:05] LABS: Basophils % 0.1 % (0.0-0.8); Eosinophils # 0.2 10*3/uL (0.0-0.87); Eosinophils % 1.4 % (0.00-10.9); Hemoglobin 9.9 GM/DL (14.0-18.0); Immature Granulocytes % 0.9 %; Immature Granulocytes Absolute 0.15 #; Lymphocytes # 1.3 10*3/uL (1.4-4.0); Lymphocytes % 8.1 % (21.2-54.2); Mean Corpuscular HGB Conc 30.9 GM/DL (32-36); Mean Corpuscular Volume 93.8 FL (87-102); Mean Platelet Volume 9.2 FL (9.6-12.0); Monocytes # 1.6 10*3/uL (0.11-0.8); Monocytes % 9.9 % (1.7-12.7); Neutrophils % 79.6 % (38.7-73.9); Platelet Count 297 T/CUMM (130-400); Red Blood Count 3.41 MC/CUMM (3.8-5.5); Red Cell Distribution Width 13.8 % (9.3-17.3); White Blood Count 16.4 T/CUMM (4-12)
[2022-04-12 04:26] LABS: Albumin 1.3 G/DL (3.4-5.0); Bilirubin,Total 0.4 MG/DL (0.20-1.00); Calcium 8.1 MG/DL (8.5-10.1); Osmolality,Calculated 295.1 MOS/KG (273-304); Potassium 3.3 MMOL/L (3.5-5.1)
[2022-04-12] MEDS: cefTRIAXone 1,000 MG in SODIUM CHLORIDE 0.9% 100 ML IV SCH (08:26)
[2022-04-12] MEDS: OLANZapine 5 MG TABLET PO SCH (08:27)
[2022-04-12] MEDS: POTASSIUM CHLORIDE 20 MEQ TABLET PO SCH (08:27)
[2022-04-12] MEDS: INSULIN GLARGINE 100 UNIT/ML SUBCUT SCH (08:27)
[2022-04-12] MEDS: carvediloL 12.5 MG TABLET PO SCH ×2 (08:28→17:02)
[2022-04-12] MEDS: DOCUSATE SODIUM 100 MG CAPSULE PO SCH (08:28)
[2022-04-12] MEDS: PANTOPRAZOLE 40 MG VIAL IV SCH (21:56)
[2022-04-12] MEDS: HEPARIN 10,000 UNIT/10 ML VIAL INTRAPERIT SCH (22:00)
[2022-04-12] MEDS: GENTAMICIN 80 MG/2 ML VIAL INTRAPERIT SCH (22:00)
[2022-04-12] MEDS: VANCOMYCIN 1,000 MG VIAL INTRAPERIT SCH (22:00)
[2022-04-12] MEDS: LOSARTAN 50 MG TABLET PO SCH (22:00)
[2022-04-13] MEDS: ALBUTEROL/IPRATROPIUM 3 ML NEB RESP TX SCH ×4 (00:05→19:46)
[2022-04-13] MEDS: INSULIN LISPRO 100 UNIT/ML SUBCUT SCH ×4 (01:11→17:43)
[2022-04-13] MEDS: METOCLOPRAMIDE 10 MG/2 ML VIAL IV SCH ×4 (01:12→17:43)
[2022-04-13] MEDS: HEPARIN 5,000 UNIT/1 ML VIAL SUBCUT SCH ×3 (04:13→21:31)
[2022-04-13 04:24] LABS: Arterial Base Excess iSTAT 2 MMOL/L (-2.5-2.5); Arterial Bicarbonate iSTAT 26.1 MMOL/L (20-26); Arterial O2 Saturation iSTAT 99 % (95-100); Arterial PCO2 iSTAT 39 MM HG (35-48); Arterial PO2 iSTAT 127 MM HG (80-95); Arterial Total CO2 iSTAT 27 MMO/L (23-27); Arterial pH iSTAT 7.436 (7.35-7.45)
[2022-04-13 05:03] LABS: Basophils # 0.1 10*3/uL (0.0-0.2); Basophils % 0.4 % (0.0-0.8); Eosinophils # 0.3 10*3/uL (0.0-0.87); Hematocrit 36.8 VOL% (42.0-52.0); Hemoglobin 11.5 GM/DL (14.0-18.0); Immature Granulocytes % 0.9 %; Immature Granulocytes Absolute 0.12 #; Lymphocytes # 1.3 10*3/uL (1.4-4.0); Lymphocytes % 9.4 % (21.2-54.2); Mean Corpuscular HGB Conc 31.3 GM/DL (32-36); Mean Corpuscular Volume 92.7 FL (87-102); Mean Platelet Volume 10.2 FL (9.6-12.0); Monocytes # 1.7 10*3/uL (0.11-0.8); Neutrophils % 75.3 % (38.7-73.9); Platelet Count 363 T/CUMM (130-400); Red Blood Count 3.97 MC/CUMM (3.8-5.5); Red Cell Distribution Width 13.6 % (9.3-17.3); White Blood Count 13.8 T/CUMM (4-12)
[2022-04-13 05:40] LABS: Alanine Aminotransferase 16 U/L (16-61); Albumin 1.5 G/DL (3.4-5.0); Alkaline Phosphatase 75 U/L (45-117); Aspartate Amino Transferase 27 U/L (0-37); Bilirubin,Total < 0.39 MG/DL (0.20-1.00); Blood Urea Nitrogen 68 MG/DL (7-18); Calcium 8.7 MG/DL (8.5-10.1); Carbon Dioxide 22 MMOL/L (21-32); Chloride 100 MMOL/L (98-107); Glucose 198 MG/DL (74-106); Osmolality,Calculated 291.4 MOS/KG (273-304); Potassium 3.3 MMOL/L (3.5-5.1); Sodium 133 MMOL/L (136-145); Total Protein 5.8 G/DL (6.4-8.2)
[2022-04-13] MEDS: carvediloL 12.5 MG TABLET PO SCH ×2 (09:47→17:43)
[2022-04-13] MEDS: OLANZapine 5 MG TABLET PO SCH (09:47)
[2022-04-13] MEDS: DOCUSATE SODIUM 100 MG CAPSULE PO SCH (09:48)
[2022-04-13] MEDS: POTASSIUM CHLORIDE 20 MEQ TABLET PO SCH ×2 (09:48→21:31)
[2022-04-13] MEDS: INSULIN GLARGINE 100 UNIT/ML SUBCUT SCH (09:48)
[2022-04-13] MEDS: cefTRIAXone 1,000 MG in SODIUM CHLORIDE 0.9% 100 ML IV SCH (09:56)
[2022-04-13] MEDS: chlorproMAZINE INJ 25 MG in SODIUM CHLORIDE 0.9% 100 ML IV SCH ×3 (10:34→21:31)
[2022-04-13] MEDS: LOSARTAN 50 MG TABLET PO SCH (21:31)
[2022-04-13] MEDS: GENTAMICIN 80 MG/2 ML VIAL INTRAPERIT SCH (21:31)
[2022-04-13] MEDS: HEPARIN 10,000 UNIT/10 ML VIAL INTRAPERIT SCH (21:31)
[2022-04-13] MEDS: VANCOMYCIN 1,000 MG VIAL INTRAPERIT SCH (21:31)
[2022-04-13] MEDS: PANTOPRAZOLE 40 MG VIAL IV SCH (21:32)
[2022-04-14] MEDS: ALBUTEROL/IPRATROPIUM 3 ML NEB RESP TX SCH ×4 (00:07→19:08)
[2022-04-14] MEDS: INSULIN LISPRO 100 UNIT/ML SUBCUT SCH ×4 (01:00→18:03)
[2022-04-14] MEDS: METOCLOPRAMIDE 10 MG/2 ML VIAL IV SCH ×4 (01:00→18:03)
[2022-04-14] MEDS: chlorproMAZINE INJ 25 MG in SODIUM CHLORIDE 0.9% 100 ML IV SCH ×2 (04:10→10:32)
[2022-04-14 04:35] LABS: Basophils % 0.3 % (0.0-0.8); Eosinophils # 0.2 10*3/uL (0.0-0.87); Hemoglobin 9.7 GM/DL (14.0-18.0); Immature Granulocytes % 0.6 %; Immature Granulocytes Absolute 0.07 #; Lymphocytes % 9.1 % (21.2-54.2); Mean Corpuscular HGB Conc 31.3 GM/DL (32-36); Mean Corpuscular Volume 94.2 FL (87-102); Mean Platelet Volume 9.9 FL (9.6-12.0); Monocytes # 1.3 10*3/uL (0.11-0.8); Monocytes % 11.6 % (1.7-12.7); Neutrophils % 76.4 % (38.7-73.9); Platelet Count 325 T/CUMM (130-400); Red Blood Count 3.29 MC/CUMM (3.8-5.5); Red Cell Distribution Width 13.7 % (9.3-17.3)
[2022-04-14] MEDS: HEPARIN 5,000 UNIT/1 ML VIAL SUBCUT SCH ×3 (04:35→21:54)
[2022-04-14 04:46] LABS: Arterial Base Excess iSTAT 1 MMOL/L (-2.5-2.5); Arterial Bicarbonate iSTAT 25.8 MMOL/L (20-26); Arterial O2 Saturation iSTAT 99 % (95-100); Arterial PCO2 iSTAT 42 MM HG (35-48); Arterial PO2 iSTAT 129 MM HG (80-95); Arterial Total CO2 iSTAT 27 MMO/L (23-27); Arterial pH iSTAT 7.396 (7.35-7.45)
[2022-04-14 04:54] LABS: Alanine Aminotransferase 18 U/L (16-61); Albumin 1.3 G/DL (3.4-5.0); Alkaline Phosphatase 68 U/L (45-117); Aspartate Amino Transferase 28 U/L (0-37); Bilirubin,Total < 0.39 MG/DL (0.20-1.00); Blood Urea Nitrogen 75 MG/DL (7-18); Calcium 8.1 MG/DL (8.5-10.1); Carbon Dioxide 24 MMOL/L (21-32); Chloride 101 MMOL/L (98-107); Glucose 237 MG/DL (74-106); Potassium 3.8 MMOL/L (3.5-5.1); Sodium 136 MMOL/L (136-145); Total Protein 5.3 G/DL (6.4-8.2)
[2022-04-14 04:57] LABS: Phosphorous 4.9 MG/DL (2.5-4.9)
[2022-04-14] MEDS: carvediloL 12.5 MG TABLET PO SCH ×2 (09:39→17:22)
[2022-04-14] MEDS: DOCUSATE SODIUM 100 MG CAPSULE PO SCH (09:39)
[2022-04-14] MEDS: POTASSIUM CHLORIDE 20 MEQ TABLET PO SCH ×2 (09:39→21:54)
[2022-04-14] MEDS: INSULIN GLARGINE 100 UNIT/ML SUBCUT SCH (09:39)
[2022-04-14] MEDS: OLANZapine 5 MG TABLET PO SCH (09:39)
[2022-04-14] MEDS: cefTRIAXone 1,000 MG in SODIUM CHLORIDE 0.9% 100 ML IV SCH (09:55)
[2022-04-14] MEDS: LOSARTAN 50 MG TABLET PO SCH (21:54)
[2022-04-14] MEDS: PANTOPRAZOLE 40 MG VIAL IV SCH (21:56)
[2022-04-15] MEDS: INSULIN LISPRO 100 UNIT/ML SUBCUT SCH ×4 (00:44→17:56)
[2022-04-15] MEDS: METOCLOPRAMIDE 10 MG/2 ML VIAL IV SCH ×4 (00:45→17:56)
[2022-04-15] MEDS: ALBUTEROL/IPRATROPIUM 3 ML NEB RESP TX SCH ×4 (00:57→19:15)
[2022-04-15] MEDS: HEPARIN 5,000 UNIT/1 ML VIAL SUBCUT SCH ×3 (04:11→19:58)
[2022-04-15 04:51] LABS: Alanine Aminotransferase 24 U/L (16-61); Albumin 1.4 G/DL (3.4-5.0); Alkaline Phosphatase 79 U/L (45-117); Aspartate Amino Transferase 32 U/L (0-37); Bilirubin,Total < 0.39 MG/DL (0.20-1.00); Blood Urea Nitrogen 65 MG/DL (7-18); Calcium 8.6 MG/DL (8.5-10.1); Carbon Dioxide 21 MMOL/L (21-32); Chloride 100 MMOL/L (98-107); Glucose 253 MG/DL (74-106); Osmolality,Calculated 289.7 MOS/KG (273-304); Potassium 4.3 MMOL/L (3.5-5.1); Sodium 131 MMOL/L (136-145)
[2022-04-15 05:28] LABS: ABG Base Excess 1.4 MMOL/L (-2.5-2.5); ABG HCO3 25.6 MMOL/L (20-26); ABG PCO2 41.8 MM HG (35-48); ABG PH 7.405 (7.35-7.45); ABG TCO2 23.8 MMOL/L (23-27)
[2022-04-15 06:15] LABS: Basophils # 0.1 10*3/uL (0.0-0.2); Basophils % 0.7 % (0.0-0.8); Eosinophils # 0.1 10*3/uL (0.0-0.87); Eosinophils % 0.7 % (0.00-10.9); Hematocrit 36.7 VOL% (42.0-52.0); Hemoglobin 11.6 GM/DL (14.0-18.0); Immature Granulocytes % 1.1 %; Immature Granulocytes Absolute 0.15 #; Lymphocytes # 1.3 10*3/uL (1.4-4.0); Lymphocytes % 9.7 % (21.2-54.2); Mean Corpuscular HGB Conc 31.6 GM/DL (32-36); Mean Corpuscular Volume 92.7 FL (87-102); Mean Platelet Volume 9.7 FL (9.6-12.0); Monocytes # 1.5 10*3/uL (0.11-0.8); Monocytes % 10.6 % (1.7-12.7); Neutrophils % 77.2 % (38.7-73.9); Platelet Count 312 T/CUMM (130-400); Red Blood Count 3.96 MC/CUMM (3.8-5.5); Red Cell Distribution Width 13.7 % (9.3-17.3); White Blood Count 13.8 T/CUMM (4-12)
[2022-04-15] MEDS ORDERED: chlorproMAZINE INJ 25 MG in SODIUM CHLORIDE 0.9% 100 ML IV PRN (09:16)
[2022-04-15] MEDS: OLANZapine 5 MG TABLET PO SCH (09:33)
[2022-04-15] MEDS: carvediloL 12.5 MG TABLET PO SCH ×2 (09:33→17:02)
[2022-04-15] MEDS: DOCUSATE SODIUM 100 MG CAPSULE PO SCH (09:33)
[2022-04-15] MEDS: INSULIN GLARGINE 100 UNIT/ML SUBCUT SCH (09:35)
[2022-04-15] MEDS: POTASSIUM CHLORIDE 20 MEQ TABLET PO SCH ×2 (09:35→20:15)
[2022-04-15] MEDS ORDERED: MORPHINE 2 MG/1 ML SYRINGE IV PRN (15:45)
[2022-04-15] MEDS ORDERED: MORPHINE 2 MG/1 ML SYRINGE ONE (15:49)
[2022-04-15] MEDS: MORPHINE 2 MG/1 ML SYRINGE IV PRN ×5 (15:50→22:14)
[2022-04-15] MEDS: LOSARTAN 50 MG TABLET PO SCH (20:17)
[2022-04-15] MEDS: PANTOPRAZOLE 40 MG VIAL IV SCH (21:40)
[2022-04-16] MEDS: ALBUTEROL/IPRATROPIUM 3 ML NEB RESP TX SCH ×4 (00:03→19:10)
[2022-04-16] MEDS: INSULIN LISPRO 100 UNIT/ML SUBCUT SCH ×5 (00:58→23:10)
[2022-04-16] MEDS: METOCLOPRAMIDE 10 MG/2 ML VIAL IV SCH ×5 (00:59→23:11)
[2022-04-16] MEDS: MORPHINE 2 MG/1 ML SYRINGE IV PRN ×2 (01:03→06:06)
[2022-04-16] MEDS: HEPARIN 5,000 UNIT/1 ML VIAL SUBCUT SCH ×3 (03:57→21:13)
[2022-04-16 04:22] LABS: Arterial Base Excess iSTAT 3 MMOL/L (-2.5-2.5); Arterial O2 Saturation iSTAT 95 % (95-100); Arterial PCO2 iSTAT 51 MM HG (35-48); Arterial PO2 iSTAT 77 MM HG (80-95); Arterial Total CO2 iSTAT 30 MMO/L (23-27); Arterial pH iSTAT 7.364 (7.35-7.45)
[2022-04-16 05:11] LABS: Basophils # 0.1 10*3/uL (0.0-0.2); Basophils % 0.6 % (0.0-0.8); Eosinophils # 0.3 10*3/uL (0.0-0.87); Hemoglobin 11.5 GM/DL (14.0-18.0); Immature Granulocytes Absolute 0.13 #; Lymphocytes # 1.4 10*3/uL (1.4-4.0); Lymphocytes % 10.4 % (21.2-54.2); Mean Corpuscular HGB Conc 30.3 GM/DL (32-36); Mean Corpuscular Volume 95.7 FL (87-102); Mean Platelet Volume 10.9 FL (9.6-12.0); Monocytes # 1.3 10*3/uL (0.11-0.8); Monocytes % 9.7 % (1.7-12.7); Neutrophils % 76.3 % (38.7-73.9); Platelet Count 277 T/CUMM (130-400); Red Blood Count 3.97 MC/CUMM (3.8-5.5); Red Cell Distribution Width 13.5 % (9.3-17.3); White Blood Count 13.3 T/CUMM (4-12)
[2022-04-16] MEDS ORDERED: INSULIN GLARGINE 100 UNIT/ML SUBCUT SCH (09:00)
[2022-04-16] MEDS: DOCUSATE SODIUM 100 MG CAPSULE PO SCH (09:54)
[2022-04-16] MEDS: carvediloL 12.5 MG TABLET PO SCH ×2 (09:54→17:31)
[2022-04-16] MEDS: OLANZapine 5 MG TABLET PO SCH (19:04)
[2022-04-16] MEDS: ATORVASTATIN 40 MG TABLET PO SCH (21:13)
[2022-04-16] MEDS: PANTOPRAZOLE 40 MG VIAL IV SCH (21:13)
[2022-04-16] MEDS: LOSARTAN 50 MG TABLET PO SCH (21:13)
[2022-04-17] MEDS: ALBUTEROL/IPRATROPIUM 3 ML NEB RESP TX SCH ×5 (00:05→23:35)
[2022-04-17] MEDS: HEPARIN 5,000 UNIT/1 ML VIAL SUBCUT SCH ×3 (03:26→21:08)
[2022-04-17 04:40] LABS: Basophils # 0.1 10*3/uL (0.0-0.2); Basophils % 0.6 % (0.0-0.8); Eosinophils # 0.2 10*3/uL (0.0-0.87); Eosinophils % 1.5 % (0.00-10.9); Hemoglobin 10.8 GM/DL (14.0-18.0); Immature Granulocytes % 0.7 %; Immature Granulocytes Absolute 0.09 #; Lymphocytes # 1.1 10*3/uL (1.4-4.0); Mean Corpuscular HGB Conc 30.9 GM/DL (32-36); Mean Corpuscular Volume 94.6 FL (87-102); Mean Platelet Volume 9.5 FL (9.6-12.0); Monocytes # 1.1 10*3/uL (0.11-0.8); Monocytes % 8.9 % (1.7-12.7); Neutrophils % 79.3 % (38.7-73.9); Platelet Count 312 T/CUMM (130-400); Red Cell Distribution Width 13.2 % (9.3-17.3); White Blood Count 12.5 T/CUMM (4-12)
[2022-04-17 04:53] LABS: Osmolality,Calculated 294.2 MOS/KG (273-304); Potassium 4.5 MMOL/L (3.5-5.1)
[2022-04-17 05:03] LABS: Phosphorous 5.4 MG/DL (2.5-4.9)
[2022-04-17] MEDS: INSULIN LISPRO 100 UNIT/ML SUBCUT SCH ×3 (05:32→17:59)
[2022-04-17] MEDS: METOCLOPRAMIDE 10 MG/2 ML VIAL IV SCH ×3 (05:34→18:00)
[2022-04-17] MEDS: DOCUSATE SODIUM 100 MG CAPSULE PO SCH (09:23)
[2022-04-17] MEDS: INSULIN GLARGINE 100 UNIT/ML SUBCUT SCH (09:23)
[2022-04-17] MEDS: carvediloL 12.5 MG TABLET PO SCH ×2 (09:23→17:59)
[2022-04-17] MEDS: MORPHINE 2 MG/1 ML SYRINGE IV PRN ×2 (11:23→17:09)
[2022-04-17] MEDS: PANTOPRAZOLE 40 MG VIAL IV SCH (21:09)
[2022-04-17] MEDS: ATORVASTATIN 40 MG TABLET PO SCH (21:09)
[2022-04-17] MEDS: LOSARTAN 50 MG TABLET PO SCH (21:09)
[2022-04-18] MEDS: METOCLOPRAMIDE 10 MG/2 ML VIAL IV SCH ×5 (00:25→23:33)
[2022-04-18] MEDS: INSULIN LISPRO 100 UNIT/ML SUBCUT SCH ×5 (00:25→23:38)
[2022-04-18] MEDS: HEPARIN 5,000 UNIT/1 ML VIAL SUBCUT SCH ×3 (03:23→20:28)
[2022-04-18 05:06] LABS: Basophils # 0.1 10*3/uL (0.0-0.2); Basophils % 0.8 % (0.0-0.8); Eosinophils # 0.2 10*3/uL (0.0-0.87); Eosinophils % 1.5 % (0.00-10.9); Hematocrit 35.1 VOL% (42.0-52.0); Hemoglobin 10.9 GM/DL (14.0-18.0); Immature Granulocytes % 0.8 %; Lymphocytes # 1.3 10*3/uL (1.4-4.0); Lymphocytes % 10.7 % (21.2-54.2); Mean Corpuscular HGB Conc 31.1 GM/DL (32-36); Mean Corpuscular Volume 93.4 FL (87-102); Mean Platelet Volume 9.1 FL (9.6-12.0); Monocytes # 1.4 10*3/uL (0.11-0.8); Monocytes % 11.4 % (1.7-12.7); Neutrophils % 74.8 % (38.7-73.9); Platelet Count 321 T/CUMM (130-400); Red Blood Count 3.76 MC/CUMM (3.8-5.5); Red Cell Distribution Width 13.2 % (9.3-17.3); White Blood Count 11.9 T/CUMM (4-12)
[2022-04-18 05:26] LABS: Calcium 8.8 MG/DL (8.5-10.1); Osmolality,Calculated 293.2 MOS/KG (273-304); Potassium 3.8 MMOL/L (3.5-5.1)
[2022-04-18] MEDS: ALBUTEROL/IPRATROPIUM 3 ML NEB RESP TX SCH ×3 (06:57→19:50)
[2022-04-18] MEDS: DOCUSATE SODIUM 100 MG CAPSULE PO SCH (08:30)
[2022-04-18] MEDS: carvediloL 12.5 MG TABLET PO SCH ×2 (08:30→17:35)
[2022-04-18] MEDS: INSULIN GLARGINE 100 UNIT/ML SUBCUT SCH (08:30)
[2022-04-18] MEDS: MORPHINE 2 MG/1 ML SYRINGE IV PRN (12:55)
[2022-04-18] MEDS: ATORVASTATIN 40 MG TABLET PO SCH (20:28)
[2022-04-18] MEDS: LOSARTAN 50 MG TABLET PO SCH (20:28)
[2022-04-18] MEDS: PANTOPRAZOLE 40 MG VIAL IV SCH (21:22)
[2022-04-19] MEDS: ALBUTEROL/IPRATROPIUM 3 ML NEB RESP TX SCH ×4 (00:25→19:40)
[2022-04-19] MEDS: HEPARIN 5,000 UNIT/1 ML VIAL SUBCUT SCH ×3 (03:50→20:35)
[2022-04-19] MEDS: METOCLOPRAMIDE 10 MG/2 ML VIAL IV SCH ×3 (05:10→17:47)
[2022-04-19 06:04] LABS: Basophils # 0.1 10*3/uL (0.0-0.2); Basophils % 0.7 % (0.0-0.8); Eosinophils # 0.1 10*3/uL (0.0-0.87); Eosinophils % 0.7 % (0.00-10.9); Hematocrit 32.8 VOL% (42.0-52.0); Hemoglobin 10.1 GM/DL (14.0-18.0); Immature Granulocytes % 0.9 %; Lymphocytes # 1.3 10*3/uL (1.4-4.0); Lymphocytes % 12.4 % (21.2-54.2); Mean Corpuscular HGB Conc 30.8 GM/DL (32-36); Mean Corpuscular Volume 93.7 FL (87-102); Mean Platelet Volume 9.2 FL (9.6-12.0); Monocytes % 9.2 % (1.7-12.7); Neutrophils % 76.1 % (38.7-73.9); Platelet Count 279 T/CUMM (130-400); Red Cell Distribution Width 13.2 % (9.3-17.3); White Blood Count 10.7 T/CUMM (4-12)
[2022-04-19] MEDS: INSULIN LISPRO 100 UNIT/ML SUBCUT SCH ×3 (06:05→18:49)
[2022-04-19 06:26] LABS: Calcium 8.8 MG/DL (8.5-10.1); Osmolality,Calculated 298.2 MOS/KG (273-304); Potassium 3.4 MMOL/L (3.5-5.1)
[2022-04-19] MEDS: carvediloL 12.5 MG TABLET PO SCH ×2 (09:49→16:25)
[2022-04-19] MEDS: INSULIN GLARGINE 100 UNIT/ML SUBCUT SCH (09:49)
[2022-04-19] MEDS: DOCUSATE SODIUM 100 MG CAPSULE PO SCH (09:50)
[2022-04-19] MEDS: ACETAMINOPHEN 325 MG TABLET PO PRN (11:41)
[2022-04-19] MEDS ORDERED: POTASSIUM CHLORIDE 20 MEQ TABLET PO ONE (13:09)
[2022-04-19] MEDS: POTASSIUM CHLORIDE RIDER 10 MEQ/100 ML PREMIX IV SCH ×2 (16:25→17:47)
[2022-04-19] MEDS: PIPERACILLIN/TAZOBACTAM 3,375 MG in SODIUM CHLORIDE 0.9% 100 ML IV SCH (18:48)
[2022-04-19] MEDS: LOSARTAN 25 MG TABLET PO SCH (20:36)
[2022-04-19] MEDS: ATORVASTATIN 40 MG TABLET PO SCH (20:36)
[2022-04-19] MEDS: PANTOPRAZOLE 40 MG VIAL IV SCH (21:50)
[2022-04-20] MEDS: METOCLOPRAMIDE 10 MG/2 ML VIAL IV SCH ×4 (00:12→18:15)
[2022-04-20] MEDS: INSULIN LISPRO 100 UNIT/ML SUBCUT SCH ×4 (00:45→18:20)
[2022-04-20] MEDS: ALBUTEROL/IPRATROPIUM 3 ML NEB RESP TX SCH ×4 (00:47→19:20)
[2022-04-20] MEDS: PIPERACILLIN/TAZOBACTAM 3,375 MG in SODIUM CHLORIDE 0.9% 100 ML IV SCH ×2 (01:30→15:44)
[2022-04-20] MEDS: HEPARIN 5,000 UNIT/1 ML VIAL SUBCUT SCH ×3 (03:27→20:24)
[2022-04-20 05:43] LABS: Calcium 9.1 MG/DL (8.5-10.1); Osmolality,Calculated 292.4 MOS/KG (273-304); Potassium 3.5 MMOL/L (3.5-5.1)
[2022-04-20 05:50] LABS: Basophils # 0.1 10*3/uL (0.0-0.2); Basophils % 0.8 % (0.0-0.8); Eosinophils # 0.2 10*3/uL (0.0-0.87); Eosinophils % 1.6 % (0.00-10.9); Hematocrit 34.2 VOL% (42.0-52.0); Hemoglobin 10.8 GM/DL (14.0-18.0); Immature Granulocytes % 1.2 %; Immature Granulocytes Absolute 0.15 #; Lymphocytes # 1.6 10*3/uL (1.4-4.0); Lymphocytes % 13.1 % (21.2-54.2); Mean Corpuscular HGB Conc 31.6 GM/DL (32-36); Mean Platelet Volume 9.7 FL (9.6-12.0); Monocytes # 1.1 10*3/uL (0.11-0.8); Monocytes % 9.2 % (1.7-12.7); Neutrophils % 74.1 % (38.7-73.9); Platelet Count 271 T/CUMM (130-400); Red Cell Distribution Width 13.2 % (9.3-17.3); White Blood Count 12.3 T/CUMM (4-12)
[2022-04-20] MEDS: INSULIN GLARGINE 100 UNIT/ML SUBCUT SCH (08:59)
[2022-04-20] MEDS: carvediloL 12.5 MG TABLET PO SCH ×2 (08:59→17:41)
[2022-04-20] MEDS: DOCUSATE SODIUM 100 MG CAPSULE PO SCH (08:59)
[2022-04-20] MEDS: ACETAMINOPHEN 325 MG TABLET PO PRN (11:23)
[2022-04-20] MEDS: LOSARTAN 25 MG TABLET PO SCH (20:24)
[2022-04-20] MEDS: ATORVASTATIN 40 MG TABLET PO SCH (20:24)
[2022-04-20] MEDS: PANTOPRAZOLE 40 MG VIAL IV SCH (21:07)
[2022-04-21] MEDS: ALBUTEROL/IPRATROPIUM 3 ML NEB RESP TX SCH ×3 (00:57→13:59)
[2022-04-21] MEDS: INSULIN LISPRO 100 UNIT/ML SUBCUT SCH ×3 (01:01→12:12)
[2022-04-21] MEDS: METOCLOPRAMIDE 10 MG/2 ML VIAL IV SCH ×3 (01:01→12:13)
[2022-04-21] MEDS: PIPERACILLIN/TAZOBACTAM 3,375 MG in SODIUM CHLORIDE 0.9% 100 ML IV SCH ×2 (01:58→13:42)
[2022-04-21] MEDS: HEPARIN 5,000 UNIT/1 ML VIAL SUBCUT SCH ×2 (03:27→12:13)
[2022-04-21 06:35] LABS: Phosphorous 5.4 MG/DL (2.5-4.9)
[2022-04-21] MEDS: DOCUSATE SODIUM 100 MG CAPSULE PO SCH (11:04)
[2022-04-21 11:27] VITALS: BP 144/67
[2022-04-21] MEDS: carvediloL 12.5 MG TABLET PO SCH (12:12)
[2022-04-21] MEDS: INSULIN GLARGINE 100 UNIT/ML SUBCUT SCH (12:12)
[2022-04-21] MEDS ORDERED: SCOPOLAMINE 1.5 MG PATCH TRANSDERM PRN (15:04)
[2022-04-21] MEDS ORDERED: LORazepam 2 MG/1 ML VIAL IV PRN (15:04)
[2022-04-21] MEDS ORDERED: ACETAMINOPHEN 650 MG SUPP RECTAL PRN (15:07)
[2022-04-21] MEDS: MORPHINE 2 MG/1 ML SYRINGE IV PRN ×2 (15:26→17:31)
[2022-04-22] MEDS ORDERED: DOCUSATE SODIUM 100 MG/10 ML UDCUP PO SCH (09:00)
== END 2022-04-21 17:57 | disposition hospice, inpatient (51) | DRG 207 ==
LOC: N.CC 19:38 → SUATTDRO 19:38 → N.5E 04-18 14:27
PROVIDERS: ADMIT Family Medicine; ATTEND Internal Medicine